=== PATIENT | female | born 1945 | race Hispanic/Latino ===

== ENCOUNTER 2016-06-20 21:24 | Inpatient (IN) | payer MEDICARE, BC ==
[2016-06-20 21:27] VITALS: BMI 23.3
--- NOTE | 2016-06-20 21:56 | ED PDOC ---
Arrival/HPI - General Chief Complaint: Abnormal Skin Integrity Time Seen by Provider: 06/20/16 21:32 - History of Present Illness Narrative History of Present Illness (Text): 06/20/16 21:58 71 yo F with h/o emboli on Coumadin, dCHF, Hypertension presents to ER with diffuse pruritic body rash x 1 month. Patient states rash started on her chest with 3-4 small erythematous, pruritic patches that subsequently spread to extremities, back, neck and head. Patient states she has been scratching at the rash, resulting is come mild bleeding a the lesion sites and scabbing. patient initially thought she had bed bugs and saved on of the bugs, which daughter looked at and now states there was no bug, it was a piece of scabbed skin. Patient states her PMD gave her Simran and a topical cream that did not help. Patient and daughter, who is also at bedside, state patient went to head of stock 3 times and has tried 3 different topical creams to no avail. States she had exterminators at her home x 2, no bugs were ever found. Admits to thinning eyebrows and hair in areas of rash. Admits to occasionally waking up with small dark/black pieces around her mouth that her daughter describes as scabs. Patient denies any changes in Detergents, food, meds. Patient states she felt slightly dizzy 2 days ago and her vision "started to darken a little," so she sat down on her bed. Patient denies any LOC and trauma , states she can recall the entire event. Denies CP, SOB, abd pain, n/v/d/c, fevers, chills, headache, dizziness, confusion, diaphoresis, weight loss. Time/Duration: > month Symptom Course: Worsening Past Medical History - Provider Review Nursing Documentation Reviewed: Yes - Travel History Have you recently traveled outside [place] w/in the past 3 mons?: No - Infectious Disease Hx of Infectious Diseases: None - Cardiac Hx Cardiac Disorders: Yes (AF, mod mitral regurgitation,) - Pulmonary Hx Chronic Obstructive Pulmonary Disease (COPD): Yes (current heavy smoker) - Neurological HX Cerebrovascular Accident: Yes - HEENT Hx HEENT Disorder: Yes Hx Blind: No Hx Cataracts: No Hx Deafness: No Hx Difficulty Chewing: No Hx Epistaxis: No Hx Glaucoma: No Hx Macular Degeneration: Yes - Renal Hx Renal Disorder: No (Kidney infection) Hx Dialysis: No Hx Kidney Stones: No Hx Neurogenic Bladder: No Hx Pyelonephritis: No Hx Renal Cancer: No Hx Renal Failure: No - Endocrine/Metabolic Hx Diabetes Mellitus Type 1: No Hx Diabetes Mellitus Type 2: No - Hematological/Oncological Hx Blood Disorders: No Hx AIDS: No Hx Anemia: No Hx Cancer: No Hx Chemotherapy: No Hx Cirrhosis: No Hx Hemophilia: No Hx Hepatitis A: No Hx Hepatitis B: No Hx Hepatitis C: No Hx Metastasis: No Hx Shingles: No Hx Sickle Cell Disease: No Hx Unexplained Bleeding: No - Integumentary Hx Dermatological Disorder: No Hx Basal Cell Carcinoma: No Hx Eczema: No Hx Melanoma: No Hx Psoriasis: No Hx Squamous Cell Carcinoma: No - Musculoskeletal/Rheumatological Hx Arthritis: (LBP) - Gastrointestinal Hx Gastrointestinal Disorders: No Hx Colostomy: No Hx Crohn's Disease: No Hx Diverticulitis: No Hx Gall Bladder Disease: No Hx Gastroesophageal Reflux: No Hx Gastrointestinal Ulcer: No Hx Ileostomy: No Hx Liver Failure: No Hx Pancreatitis: No HX Swallowing Problems: No - Genitourinary/Gynecological Hx Genitourinary Disorders: No Hx Hematuria: No Hx Incontinence: No Hx Prostate Problems: No Hx Sexually Transmitted Diseases: No Hx Urinary Tract Infection: Yes - Psychiatric Hx Psychophysiologic Disorder: No Hx Anxiety: No Hx Bipolar Disorder: No Hx Depression: No Hx Emotional Abuse: No Hx Hallucinations: No Hx Panic Disorder: No Hx Post Traumatic Stress Disorder: No Hx Psychosis: No Hx Physical Abuse: No Hx Schizophrenia: No Hx Sexual Abuse: No Hx Substance Use: No - Surgical History Hx Amputation: No Hx Appendectomy: Yes Hx Cardiac Catheterization: No Hx Cholecystectomy: No Hx Coronary Stent: No Hx Gastric Bypass Surgery: No Hx Hysterectomy: No Hx Joint Replacement: No Hx Kidney Transplant: No Hx Liver Transplant: No Hx Mastectomy: No Hx Musculoskeletal Surgery: No Hx Open Heart Surgery: No Hx Orthopedic Surgery: No Hx Splenectomy: No Hx Valve Replacement: No - Anesthesia Hx Anesthesia: Yes Hx Anesthesia Reactions: No Hx Malignant Hyperthermia: No - Suicidal Assessment Feels Threatened In Home Enviroment: No Family/Social History Family/Social History: CVA/TIA, Diabetes Smoking Status: Heavy Smoker > 10 Cigarettes Daily Hx Alcohol Use: No Hx Substance Use: No Allergies/Home Meds Allergies/Adverse Reactions: Allergies No Known Allergies Allergy (Verified 10/17/15 14:50) Home Medications: Home Meds Medication Instructions Recorded Confirmed Warfarin [Coumadin] 5 mg PO DAILY 02/25/14 10/19/15 Celecoxib [celeBREX] 200 mg PO DAILY 10/16/15 10/19/15 Metoprolol Tartrate [Lopressor] 50 mg PO BID 10/16/15 10/19/15 Aspirin [Low Dose Aspirin EC] 81 mg DAILY 10/19/15 10/19/15 Isosorbide Mononitrate [Imdur] 30 mg DAILY 10/19/15 10/19/15 Ferrous Gluconate [Ferate] 240 mg PO BID 06/20/16 06/20/16 Fexofenadine HCl [Allergy Relief] 60 mg PO DAILY 06/20/16 06/20/16 metOLazone [Zaroxolyn] 5 mg PO BID 06/20/16 06/20/16 Review of Systems - Physician Review All systems were reviewed & negative as marked: Yes - Review of Systems Constitutional: Normal. absent: Fatigue Eyes: Normal ENT: Normal Respiratory: Normal. absent: SOB, Cough, Sputum Cardiovascular: Normal. absent: Chest Pain, Palpitations, Edema, Calf Pain, LYNN Gastrointestinal: absent: Abdominal Pain, Constipation, Diarrhea, Nausea, Vomiting Genitourinary Female: absent: Dysuria, Frequency Musculoskeletal: absent: Back Pain, Neck Pain Skin: Rash (diffuse pruritic, erythematous body rash), Pruritis Neurological: Normal. absent: Headache, Dizziness Endocrine: Normal. absent: Diaphoresis, Polyuria Psychiatric: Normal Physical Exam Vital Signs Reviewed: Yes Vital Signs Temp Pulse Resp BP Pulse Ox 06/20/16 21:36 98.6 F 78 18 128/74 99 Temperature: Afebrile Blood Pressure: Normal Pulse: Regular Respiratory Rate: Normal Appearance: Positive for: Well-Appearing, Non-Toxic, Comfortable Pain Distress: None Mental Status: Positive for: Alert and Oriented X 3 - Systems Exam Head: Present: Atraumatic, Normocephalic Pupils: Present: PERRL Extroacular Muscles: Present: EOMI Conjunctiva: Present: Normal Mouth: Present: Moist Mucous Membranes Nose (External): Present: Atraumatic Neck: Present: Normal Range of Motion. No: Meningeal Signs, JVD Respiratory/Chest: Present: Clear to Auscultation. No: Respiratory Distress, Accessory Muscle Use Cardiovascular: Present: Regular Rate and Rhythm, Normal S1, S2 Abdomen: Present: Normal Bowel Sounds. No: Tenderness, Distention, Peritoneal Signs, Rebound, Guarding Upper Extremity: Present: Normal Inspection. No: Cyanosis, Edema Lower Extremity: Present: Normal Inspection. No: Edema, CALF TENDERNESS Neurological: Present: GCS=15, CN II-XII Intact, Speech Normal Skin: Present: Warm, Rashes (diffuse pruritic, erthematous rash. ) Psychiatric: Present: Alert, Oriented x 3, Normal Concentration Medical Decision Making ED Course and Treatment: 06/20/16 22:23 71 yo F with h/o emboli on Coumadin, dCHF, Hypertension presents to ER with diffuse pruritic body rash x 1 month, presyncope 2 days ago. - RAD Interpretation Radiology Orders: 06/20/16 21:35 HEAD W/O CONTRAST [CT] Stat - EKG Interpretation EKG Interpretation (Text): 06/20/16 22:21 SR, 54bpm, shortened NH (94ms). Nonspecific ST/T wave changes Interpreted by ED Physician: Yes Type: 12 lead EKG Comparison: Similar to previous EKG Disposition/Present on Arrival - Present on Arrival Any Indicators Present on Arrival: No History of DVT/PE: No History of Uncontrolled Diabetes: No Urinary Catheter: No History of Decub. Ulcer: No History Surgical Site Infection Following: None - Disposition Have Diagnosis and Disposition been Completed?: Yes Diagnosis: Pruritic rash, Syncope, Anticoagulated on Coumadin Disposition: HOSPITALIZED Disposition Time: 22:36 Patient Plan: Admission Patient Problems: Current Active Problems Problem Status Onset Pruritic rash Acute Condition: FAIR Referrals: Bruno Allen MD [Primary Care Provider] - Follow up with primary
[2016-06-20 22:18] LABS: ADD MANUAL DIFF? NO
[2016-06-20 22:27] LABS: BASO # 0.01 [, K/mm3] (0.0-2.0); BASO % 0.1 % (0.0-3.0); EOS % 0.2 % (1.5-5.0); GRAN # 5.14 (1.4-6.5); GRAN % 60.6 % (50.0-68.0); HEMATOCRIT 34.9 % (36.0-48.0); LYMPH # 2.6 (1.2-3.4); LYMPH % 30.2 % (22.0-35.0); MEAN CELL VOLUME 69.1 fL (80.0-105.0); MEAN CORPUSCULAR HEMOGLOBIN 22.2 pg (25.0-35.0); MEAN CORPUSCULAR HGB CONC 32.1 g/dl (31.0-37.0); MONO # 0.8 (0.1-0.6); MONO % 8.9 % (1.0-6.0); PLATELET COUNT 186 [, 10^3/uL] (120.0-450.0); RED CELL DISTRIBUTION WIDTH 19.6 % (11.5-14.5); WHITE BLOOD COUNT 8.5 [, 10^3/ul] (4.5-11.0)
[2016-06-20 22:32] LABS: ALB/GLOB RATIO 1.1 (1.1-1.8); ALKALINE PHOSPHATASE 38 U/L (38-133); ALT/SGPT 33 U/L (7-56); AST/SGOT 32 U/L (15-39); BILIRUBIN,TOTAL 0.6 mg/dL (0.2-1.3); BLOOD UREA NITROGEN 31 mg/dL (7-21); CALCIUM 10.3 mg/dL (8.4-10.5); CARBON DIOXIDE 30 mmol/L (21-33); CHLORIDE 99 mmol/L (98-107); GFR AFRICAN-AMERICAN > 60; GLUCOSE,RANDOM 106 mg/dL (70-110); LIPASE 173 U/L (23-300); POTASSIUM 3.4 mmol/L (3.6-5.0); SODIUM 139 mmol/L (132-148); TOTAL PROTEIN 7.3 g/dL (5.8-8.3)
--- NOTE | 2016-06-20 22:34 | CT ---
EXAM: CT Head Without Intravenous Contrast CLINICAL HISTORY: 71 years old, female; Signs and symptoms; Syncope and collapse; Additional info: Recent syncope - on coumadin TECHNIQUE: Axial computed tomography images of the head/brain without intravenous contrast. This CT exam was performed using one or more of the following dose reduction techniques: automated exposure control, adjustment of the mA and/or kV according to patient size, and/or use of iterative reconstruction technique. COMPARISON: No relevant prior studies available. FINDINGS: Brain: No acute intracranial hemorrhage. Age-appropriate periventricular white matter disease. No edema. Ventricles: Age-appropriate ventriculomegaly. Bones: No acute displaced fracture. Sinuses: Unremarkable as visualized. No acute sinusitis. Mastoid air cells: Unremarkable as visualized. No mastoid effusion. IMPRESSION: No acute intracranial hemorrhage, or suspicious mass effect.
[2016-06-20 22:38] LABS: PARTIAL THROMBOPLASTIN TIME 40.7 Seconds (23.7-30.8)
[2016-06-20 22:43] LABS: TROPONIN I 0.04 ng/mL
[2016-06-20 22:45] LABS: INR 5.88 (0.93-1.08)
[2016-06-21] MEDS ORDERED: [UNRECOGNIZED DRUG - REMARK] PO PRN (00:05)
[2016-06-21] MEDS ORDERED: Dextrose 5%/0.45% NS 1,000 ML IV SCH (02:00)
[2016-06-21] MEDS: Dextrose 5%/0.45% NS 1,000 ML IV SCH ×2 (02:57→15:10)
--- NOTE | 2016-06-21 08:14 | RAD ---
HISTORY: presyncope COMPARISON: 04/05/2016 FINDINGS: LUNGS: No active pulmonary disease. PLEURA: No significant pleural effusion identified, no pneumothorax apparent. CARDIOVASCULAR: Moderate cardiomegaly OSSEOUS STRUCTURES: No significant abnormalities. VISUALIZED UPPER ABDOMEN: Normal. OTHER FINDINGS: None. IMPRESSION: No active disease. Moderate cardiomegaly
[2016-06-21] MEDS: FERROUS GLUCONATE 240 MG PO SCH ×2 (09:47→17:22)
[2016-06-21] MEDS: Non Formulary Medication (Celecoxib [Celebrex] 200 MG) PO SCH (09:47)
--- NOTE | 2016-06-21 13:53 | CON ---
DATE: 06/21/2016 SERVICE: Cardiology. REASON FOR CONSULTATION: Cardiac evaluation, sinus bradycardia. BRIEF CLINICAL HISTORY: A 71-year-old female with past medical history significant for hypertension, history of splenic infarct, multiple thromboembolic phenomena in the past, had a ANETA because of mult iple thromboembolic infarcts, negative for PFO, no vegetation, active tobacco abuse, admitted here be cause of diffuse rash all over the body. The patient denies any chest pain, shortness of breath, any palpitation. The patient found to be bradycardic, so cardiac consult was called. The patient denie s any chest pain. 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 At that time, the patient underwent ANETA, show ed no PFO, no vegetation, no thrombus. The patient had a stress test at that time that showed a smal l area of ischemia, but cath was not done because of a stroke and was scheduled later on in 05/2014, b ut later on the patient declined for cardiac catheterization. The patient also had echocardiography on 10/17/2015, that showed ejection fraction 65%, mild aortic stenosis, moderate mitral regurgitation, mitral regurgitant jet is eccentrically directed, tricuspid mild regurgitation, RVSP 40. SOCIAL HISTORY: Smokes past 12 cigarettes a day, longstanding history of smoking. Denies any histor y of alcohol abuse. Denies any history of substance abuse. REVIEW OF SYSTEMS: As per HPI. PHYSICAL EXAMINATION: VITAL SIGNS: Temperature afebrile, heart rate 42, blood pressure 128/48. HEENT: PERRLA. Extraocular muscles intact. NECK: Supple. No carotid bruits. Carotid bruit with thyromegaly. CHEST: Clear to auscultation. HEART: S1, S2 regular. ABDOMEN: Soft. EXTREMITIES: Clubbing and cyanosis negative. LABORATORY DATA: Blood workup as follows: WBC 8.5, hemoglobin , hematocrit 34.9, platelet coun t 186. Chemistry shows sodium 139, potassium 3.4, chloride 99, carbon dioxide 30, anion gap of 13, B UN 31, creatinine 1.0. Troponin 0.01. CURRENT MEDICATIONS: The patient at home was taking Zaroxolyn, warfarin, metoprolol, isosorbide mono nitrate, Lasix, aspirin. IMPRESSION: Bradycardia, possibly secondary to metoprolol, taking 25 mg b.i.d., on Coumadin because of multiple thromboembolic complications, splenic infarct, renal infarct, in the back has a sma ll area of apical ischemia. Initially was scheduled because of a stroke, but later on scheduled in , the patient's family later declined, patient is asymptomatic. RECOMMENDATION: We will cut down the dose of beta nena and hold it off and monitor for the next 2 4-48 hours. After that, if the patient still remains bradycardic, we will schedule for Holter. The patient had most recently an echocardiography that shows preserved left ventricular function, mild to moderate mitral regurg, mild to moderate tricuspid regurgitation, right ventricular systolic pressur e 40, mild aortic sclerosis versus stenosis. We will follow with you. For now, will observe the pat ient for the heart rate while off beta nena. Last dose patient took yesterday metoprolol in the e vening, so at least wait for 48 hours to clear from the body and then we will observe the heart rate. Thank you, Dr. Allen, for providing the opportunity in taking care of the patient. INR suprather apeutic 5.88. We will check INR tomorrow. If it goes below 2, we will restart Coumadin. For now, Co umadin is on hold. I will put a baby aspirin. We will follow with you. Louis Montaño MD cc:Dhaval Allen MD [id number] TT: 06/21/2016 13:52:52 Confirmation # [id number] Dictation # [id number]
[2016-06-21 15:57] LABS: URINE BILIRUBIN NEGATIVE (NEGATIVE); URINE BLOOD NEGATIVE (NEGATIVE); URINE GLUCOSE (UA) NEGATIVE (NEGATIVE); URINE KETONE NEGATIVE (NEGATIVE); URINE LEUKOCYTE ESTERASE NEGATIVE Leu/uL (NEGATIVE); URINE PROTEIN NEGATIVE mg/dL (<30 mg/dL); URINE UROBILINOGEN 0.2 E.U./dL (<1 E.U./dL)
[2016-06-21 15:58] LABS: URINE APPEARANCE CLEAR (CLEAR); URINE COLOR YELLOW (YELLOW)
[2016-06-21] MEDS: Hydrocortisone 2.5% Oint(30 gm) TOP PRN (20:31)
--- NOTE | 2016-06-21 22:52 | CARD ---
APPROVED REPORT EKG Measurement Heart [id number] <Conclusion> Sinus bradycardia with short NE ST abnormality, possible digitalis effect Abnormal ECG
[2016-06-22] MEDS: Dextrose 5%/0.45% NS 1,000 ML IV SCH (06:21)
[2016-06-22 07:24] LABS: ADD MANUAL DIFF? NO
[2016-06-22 07:31] LABS: BASO # 0.01 [, K/mm3] (0.0-2.0); BASO % 0.1 % (0.0-3.0); EOS # 0.1 (0.0-0.7); EOS % 0.8 % (1.5-5.0); GRAN # 4.28 (1.4-6.5); GRAN % 55.9 % (50.0-68.0); LYMPH # 2.7 (1.2-3.4); LYMPH % 35.1 % (22.0-35.0); MEAN CELL VOLUME 69.6 fL (80.0-105.0); MEAN CORPUSCULAR HEMOGLOBIN 21.5 pg (25.0-35.0); MEAN CORPUSCULAR HGB CONC 30.8 g/dl (31.0-37.0); MONO # 0.6 (0.1-0.6); MONO % 8.1 % (1.0-6.0); PLATELET COUNT 162 [, 10^3/uL] (120.0-450.0); RED CELL DISTRIBUTION WIDTH 19.7 % (11.5-14.5); WHITE BLOOD COUNT 7.7 [, 10^3/ul] (4.5-11.0)
[2016-06-22 07:39] LABS: INR 2.32 (0.93-1.08)
[2016-06-22 07:44] LABS: ALB/GLOB RATIO 1.1 (1.1-1.8); ALKALINE PHOSPHATASE 33 U/L (38-133); ALT/SGPT 37 U/L (7-56); AST/SGOT 29 U/L (15-39); BILIRUBIN,TOTAL 0.7 mg/dL (0.2-1.3); BLOOD UREA NITROGEN 21 mg/dL (7-21); CALCIUM 9.9 mg/dL (8.4-10.5); CARBON DIOXIDE 35 mmol/L (21-33); CHLORIDE 99 mmol/L (98-107); CHOLESTEROL 141 mg/dL (130-200); GFR AFRICAN-AMERICAN > 60; GLUCOSE,RANDOM 91 mg/dL (70-110); MAGNESIUM 1.8 mg/dL (1.7-2.2); PHOSPHOROUS 2.8 mg/dL (2.5-4.5); POTASSIUM 3.5 mmol/L (3.6-5.0); SODIUM 141 mmol/L (132-148); TOTAL PROTEIN 6.6 g/dL (5.8-8.3)
[2016-06-22] MEDS: Non Formulary Medication (Celecoxib [Celebrex] 200 MG) PO SCH (10:00)
--- NOTE | 2016-06-22 10:52 | HP ---
CHIEF COMPLAINT: 1. Syncopal episode on the day prior to admission. 2. Hypercoagulable state related to Coumadin. 3. Pruritic rash. HISTORY OF PRESENT ILLNESS: This is a 71-year-old woman with no significant past medical history exc ept for atrial fibrillation on the Coumadin. She was hospitalized in 09/2015 with exertional dyspnea and ankle edema, and in 2014 with a new onset of atrial fibrillation. PAST SURGICAL HISTORY: Includes appendectomy a long time ago. The patient came to the Emergency Room after a syncopal episode 2 days before. She awoke the morning of admission with blood in her mouth and no obvious source, and was quite concerned to see the blood on the pillow. She has also been plagued by a pruritic rash. She saw Dr. Van Allen, her primary care physician, in the office; saw a operating room coordinator, was treated with Elimite; had her house treated for bedbugs, but yet the lesions continued to be quite painful and itchy adding to her frustration an d coming to the Emergency Room. PAST MEDICAL HISTORY: Significant only for the atrial fibrillation and mild CHF symptoms as noted ab marisela. CURRENT MEDICATIONS: Include Lasix, metolazone, warfarin, a Medrol Dosepak, metoprolol, fexofenadine , iron and aspirin. ALLERGIES: She has no known allergies to medications. SOCIAL HISTORY: She smokes a half pack of cigarettes a day, but does not drink alcohol. REVIEW OF SYSTEMS: Otherwise, unremarkable on multiple points. PHYSICAL EXAMINATION: GENERAL: The patient was seen resting comfortably in room 362 this Monday. She is awake, a lert, clear and appropriate, in good spirits, fully ambulatory. HEENT: Head and neck are unremarkable. Conjunctivae are pink. Mucous membranes are moist. NECK: Supple, without masses. There is no JVD. There are no carotid bruits. HEART: Irregular, but not tachycardic. LUNGS: Clear with good aeration, right and left. ABDOMEN: Soft, nontender. EXTREMITIES: Show no significant edema. SKIN: Shows multiple discrete bite-like lesions, 1 cm or smaller, with scabbed centers present on th e neck, arms, legs and upper back with surrounding excoriations noted. MOUTH: Shows no tumors or masses. No specific source of any cut or bleeding. LABORATORY DATA: Review reveals an INR of 5 on admission. ____ of 11 and 35 today, INR of 5.88 as n oted above, and a slightly low potassium of 3.4. IMPRESSION: 1. Syncopal episode 2 days ago. 2. Excoriated itchy rash from suspected bug bites. Consider bedbugs. 3. Coumadin coagulopathy with an INR of 5. 4. Occasional palpitations as reported by patient. 5. Atrial fibrillation. 6. Mild congestive heart failure, chronic, related to atrial fibrillation. PLAN: The patient will be monitored on a telemetry bed. Old records reviewed as to the extent of an y cardiac or neurologic workup that may be needed as well as further investigation into this syncopal versus near syncopal episode as doubt arises as to the details of the actual event. Will continue h er prior medications, order analgesics and antipyretics. I have also spoken with the social media project manager alcira mcmahon will contact public [employer] to see that her apartment at [address] [place] [address] A will be checked and fumigate d. Dhaval Allen MD cc: [id number] TT: 06/22/2016 09:17:21 [email or web address]
[2016-06-22] MEDS: Hydrocortisone 2.5% Oint(30 gm) TOP PRN (12:22)
--- NOTE | 2016-06-22 12:53 | CP.PCM.CON ---
<Hermelinda Elliott - Last Filed: 06/22/16 12:35> History of Present Illness - History of Present Illness History of Present Illness: Surgery Consult: Dr. Sheehan Pt is a 71F with PMHx significant for HTN, and afib on coumadin who presented to [facility] [place] for syncopal episode and a rash that has been present for 1 month. Pt states that she started finding little "bug bites" on her body about a month ago that were very itchy. She saw her primary care doctor and was referred to a search engine marketing manager who placed her on Elimite. Pt also had her house fumigated for bed bugs. However, none of these measures have helped her and the rash has spread to her back and even her scalp. She states it continues to be itchy and has caused her a lot of distress. Currently, pt is on hydrocortisone cream and surgery has been consulted to evaluate the rash for possible biopsy. Pt denies anyone else in the household having similar problems. Denies recent travel. She also denies any other associated symptoms such as N/V, F/C. PMHx: as stated above PSHx: denies SocialHx: long standing smoking history, current smoker NKDA Review of Systems - Review of Systems All systems: reviewed and no additional remarkable complaints except (as per HPI ) Past Patient History - Infectious Disease Hx of Infectious Diseases: None - Past Social History Smoking Status: Current Some Days Smoker - CARDIAC Hx Cardiac Disorders: Yes (AF, mod mitral regurgitation,) - PULMONARY Hx Chronic Obstructive Pulmonary Disease (COPD): Yes (current heavy smoker) - NEUROLOGICAL HX Cerebrovascular Accident: Yes - HEENT Hx HEENT Problems: Yes Hx Blind: No Hx Cataracts: No Hx Deafness: No Hx Difficulty Chewing: No Hx Epistaxis: No Hx Glaucoma: No Hx Macular Degeneration: Yes - RENAL Hx Renal Failure: No - ENDOCRINE/METABOLIC Hx Diabetes Mellitus Type 1: No Hx Diabetes Mellitus Type 2: No - HEMATOLOGICAL/ONCOLOGICAL Hx Blood Disorders: No Hx AIDS: No Hx Anemia: No Hx Cancer: No Hx Chemotherapy: No Hx Cirrhosis: No Hx Hemophilia: No Hx Hepatitis A: No Hx Hepatitis B: No Hx Hepatitis C: No Hx Metastesis: No Hx Shingles: No Hx Sickle Cell Disease: No Hx Unexplained Bleeding: No - INTEGUMENTARY Hx Dermatological Problems: No Hx Basil Cell: No Hx Eczema: No Hx Melanoma: No Hx Psoriasis: No Hx Squamous Cell: No - MUSCULOSKELETAL/RHEUMATOLOGICAL Hx Arthritis: (LBP) - GASTROINTESTINAL Hx Gastrointestinal Disorders: No Hx Colostomy: No Hx Crohn's Disease: No Hx Diverticulitis: No Hx Gall Bladder Disease: No Hx Gastroesophageal Reflux: No Hx Ileostomy: No Hx Liver Failure: No Hx Pancreatitis: No HX Swallowing Problems: No - GENITOURINARY/GYNECOLOGICAL Hx Genitourinary Disorders: No Hx Hematuria: No Hx Incontinence: No Hx Sexually Transmitted Disorders: No Hx Urinary Tract Infection: Yes - PSYCHIATRIC Hx Psychophysiologic Disorder: No Hx Anxiety: No Hx Bipolar Disorder: No Hx Depression: No Hx Emotional Abuse: No Hx Hallucinations: No Hx Panic Symptoms: No Hx Post Traumatic Stress Disorder: No Hx Psychosis: No Hx Physical Abuse: No Hx Schizophrenia: No Hx Sexual Abuse: No - SURGICAL HISTORY Hx Amputation: No Hx Cardiac Catheterization: No Hx Cholecystectomy: No Hx Coronary Stent: No Hx Gastric Bypass Surgery: No Hx Hysterectomy: No Hx Joint Replacement: No Hx Kidney Transplant: No Hx Liver Transplant: No Hx Mastectomy: No Hx Musculoskeletal Surgery: No Hx Open Heart Surgery: No Hx Orthopedic Surgery: No Hx Splenectomy: No Hx Valve Replacement: No - ANESTHESIA Hx Anesthesia: Yes Hx Anesthesia Reactions: No Hx Malignant Hyperthermia: No Meds Allergies/Adverse Reactions: Allergies Allergy/AdvReac Type Severity Reaction Status Date / Time No Known Allergies Allergy Verified 10/17/15 14:50 - Medications Medications: Current Medications Aspirin (Ecotrin) 81 mg PO DAILY [facility] Last Admin: 06/22/16 09:59 Dose: 81 mg Cephalexin Monohydrate (Keflex) 500 mg PO Q6 [facility] PRN Reason: Protocol Last Admin: 06/22/16 12:19 Dose: 500 mg Diphenhydramine HCl (Benadryl) 25 mg PO Q6 [facility] Last Admin: 06/22/16 12:20 Dose: 25 mg Ferrous Sulfate (Feosol) 324 mg PO DAILY [facility] Last Admin: 06/22/16 09:58 Dose: 324 mg Furosemide (Lasix) 20 mg PO DAILY [facility] Last Admin: 06/22/16 09:58 Dose: 20 mg Hydrocortisone (Hydrocortisone 2.5%) 0 gm TOP BID PRN PRN Reason: Itching / Pruritus Last Admin: 06/22/16 12:22 Dose: 1 applic Ibuprofen (Motrin Tab) 600 mg PO Q6H [facility] Last Admin: 06/22/16 12:20 Dose: 600 mg Isosorbide Mononitrate (Imdur) 30 mg PO DAILY [facility] Last Admin: 06/22/16 09:58 Dose: 30 mg Loratadine (Claritin) 10 mg PO DAILY [facility] Last Admin: 06/22/16 09:58 Dose: 10 mg Metoprolol Tartrate (Lopressor) 50 mg PO BID [facility] Last Admin: 06/22/16 09:59 Dose: 50 mg Nicotine (Nicoderm Cq) 1 patch TD DAILY [facility] Last Admin: 06/22/16 10:00 Dose: 1 patch Non-Formulary Medication (Celecoxib [Celebrex]) 200 mg PO DAILY [facility] Last Admin: 06/22/16 10:00 Dose: Not Given Physical Exam - Constitutional Appears: Well, No Acute Distress - Head Exam Head Exam: ATRAUMATIC, NORMOCEPHALIC - Eye Exam Eye Exam: Normal appearance - ENT Exam ENT Exam: Mucous Membranes Moist - Respiratory Exam Respiratory Exam: NORMAL BREATHING PATTERN - Cardiovascular Exam Cardiovascular Exam: Bradycardia - GI/Abdominal Exam GI & Abdominal Exam: Soft. absent: Tenderness - Rectal Exam Rectal Exam: Deferred - Extremities Exam Extremities exam: Positive for: full ROM - Neurological Exam Neurological exam: Alert, Oriented x3 - Skin Skin Exam: Dry, Warm Additional comments: multiple punctate lesions through out arms, legs, back and scalp, with central ulceration Results - Vital Signs Recent Vital Signs: Last Vital Signs Temp 97.9 F 06/22/16 06:00 Pulse 48 L 06/22/16 06:00 Resp 20 06/22/16 06:00 BP 122/60 06/22/16 09:58 Pulse Ox 95 06/22/16 06:00 - Labs Result Diagrams: 06/22/16 07:00 06/22/16 07:00 Labs: Laboratory Results - last 24 hr 06/21/16 06/22/16 06/22/16 14:30 07:00 07:00 WBC 7.7 RBC 5.17 Hgb 11.1 L Hct 36.0 MCV 69.6 L MCH 21.5 L MCHC 30.8 L RDW 19.7 H Plt Count 162 Gran % 55.9 Lymph % (Auto) 35.1 H Delta % (Auto) 8.1 H Eos % (Auto) 0.8 L Baso % (Auto) 0.1 Gran # 4.28 Lymph # 2.7 Delta # 0.6 Eos # 0.1 Baso # 0.01 PT 25.1 H INR 2.32 H Sodium Potassium Chloride Carbon Dioxide Anion Gap BUN Creatinine Est GFR ( Amer) Est GFR (Non-Af Amer) Random Glucose Calcium Phosphorus Magnesium Total Bilirubin AST ALT Alkaline Phosphatase Total Protein Albumin Globulin Albumin/Globulin Ratio Triglycerides Cholesterol LDL Cholesterol Direct HDL Cholesterol TSH 3rd Generation Urine Color Yellow Urine Appearance Clear Urine pH 6.0 Ur Specific Mccammon 1.010 Urine Protein Negative Urine Glucose (UA) Negative Urine Ketones Negative Urine Blood Negative Urine Nitrate Negative Urine Bilirubin Negative Urine Urobilinogen 0.2 Ur Leukocyte Esterase Negative 06/22/16 06/22/16 07:00 07:00 WBC RBC Hgb Hct MCV MCH MCHC RDW Plt Count Gran % Lymph % (Auto) Delta % (Auto) Eos % (Auto) Baso % (Auto) Gran # Lymph # Delta # Eos # Baso # PT INR Sodium 141 Potassium 3.5 L Chloride 99 Carbon Dioxide 35 H Anion Gap 11 BUN 21 Creatinine 0.7 Est GFR ( Amer) > 60 Est GFR (Non-Af Amer) > 60 Random Glucose 91 Calcium 9.9 Phosphorus 2.8 Magnesium 1.8 Total Bilirubin 0.7 AST 29 ALT 37 Alkaline Phosphatase 33 L Total Protein 6.6 Albumin 3.4 Globulin 3.2 Albumin/Globulin Ratio 1.1 Triglycerides 105 Cholesterol 141 LDL Cholesterol Direct 77 HDL Cholesterol 37 TSH 3rd Generation < 0.02 L Urine Color Urine Appearance Urine pH Ur Specific Mccammon Urine Protein Urine Glucose (UA) Urine Ketones Urine Blood Urine Nitrate Urine Bilirubin Urine Urobilinogen Ur Leukocyte Esterase Assessment & Plan - Assessment and Plan (Free Text) Assessment: 71F with diffuse skin rash Plan: - f/u ID recs - will do skin biopsy in AM - d/w Dr. Aguila Elliott, PGY-2 Surgery <Caleb Sheehan - Last Filed: 06/22/16 20:36> Meds - Medications Medications: Current Medications Aspirin (Ecotrin) 81 mg PO DAILY [facility] Last Admin: 06/22/16 09:59 Dose: 81 mg Diphenhydramine HCl (Benadryl) 25 mg PO Q6 [facility] Last Admin: 06/22/16 17:55 Dose: 25 mg Ferrous Sulfate (Feosol) 324 mg PO DAILY [facility] Last Admin: 06/22/16 09:58 Dose: 324 mg Furosemide (Lasix) 20 mg PO DAILY [facility] Last Admin: 06/22/16 09:58 Dose: 20 mg Hydrocortisone (Hydrocortisone 2.5%) 0 gm TOP BID PRN PRN Reason: Itching / Pruritus Last Admin: 06/22/16 12:22 Dose: 1 applic Ibuprofen (Motrin Tab) 600 mg PO Q6H [facility] Last Admin: 06/22/16 17:55 Dose: 600 mg Isosorbide Mononitrate (Imdur) 30 mg PO DAILY [facility] Last Admin: 06/22/16 09:58 Dose: 30 mg Loratadine (Claritin) 10 mg PO DAILY [facility] Last Admin: 06/22/16 09:58 Dose: 10 mg Metoprolol Tartrate (Lopressor) 50 mg PO BID [facility] Last Admin: 06/22/16 09:59 Dose: 50 mg Nicotine (Nicoderm Cq) 1 patch TD DAILY [facility] Last Admin: 06/22/16 10:00 Dose: 1 patch Non-Formulary Medication (Celecoxib [Celebrex]) 200 mg PO DAILY [facility] Last Admin: 06/22/16 10:00 Dose: Not Given Results - Vital Signs Recent Vital Signs: Last Vital Signs Temp 98.3 F 06/22/16 17:00 Pulse 46 L 06/22/16 18:00 Resp 20 06/22/16 17:00 BP 95/50 L 06/22/16 17:00 Pulse Ox 93 L 06/22/16 17:00 - Labs Result Diagrams: 06/22/16 07:00 06/22/16 07:00 Assessment & Plan - Assessment and Plan (Free Text) Assessment: Dx: Infestation( ? Scabies) Rx More aggressive management of itching I/D Consultation Skin Biopsy to confirm the Histopathology Consult done under my direct supervision Dong Sheehan MD FACS
[2016-06-22] MEDS ORDERED: Potassium Chloride 20 mEq ER Tab PO ONE (13:16)
--- NOTE | 2016-06-22 15:56 | PN ---
DATE: 06/22/2016 The patient in room 362, bed 2. REASON FOR CONSULTATION AND FOLLOWUP: Sinus bradycardia. HISTORY OF PRESENT ILLNESS: A 71-year-old female with past medical history significant for hypertens ion, splenic infarct, multiple thromboembolic phenomena in the past. Had ANETA because of multiple thr omboembolic infarcts. ANETA was negative for PFO and no vegetation was seen. The patient is an active tobacco abuser. The patient was admitted with diffuse rash all over the body, and found to have bra dycardia. The patient denies chest pain, shortness of breath, palpitation, dizziness or syncope. e patient had ANETA in 2013. The patient had a stress test at the same time which showed a small area of ischemia, but patient refused catheterization. Repeat echo 10/17/2015 showed ejection fraction 65 %, mild aortic stenosis, moderate mitral regurg - the mitral regurgitation jet is eccentrically direc nikhil - mild tricuspid regurg, RVSP 40 mmHg. The patient on monitor still has bradycardia but denies a ny chest pain, shortness of breath, palpitation. PHYSICAL EXAMINATION: VITAL SIGNS: Blood pressure 122/60, respirations 20, pulse 48, temperature 97.9. HEAD: Normocephalic. EYES: Pupils normal. Conjunctivae slightly pale. NECK: JVP low. Carotid equal. THORAX: AP diameter normal. LUNGS: Clear. CARDIOVASCULAR: S1, S2. Systolic murmur. No rub. ABDOMEN: Soft. No tenderness, no organomegaly. EXTREMITIES: No clubbing, no cyanosis. LABORATORY DATA: WBC 7.7, hemoglobin 11.1, hematocrit 36.0, platelets 162. Sodium 141, potassium 3. 5, BUN 21, creatinine 0.7. AST, ALT normal. TSH less than 0.02. DIAGNOSES: Bradycardia. The patient was on metoprolol 50 b.i.d. at home, on Coumadin because of mul tiple thromboembolic phenomena including splenic infarct, renal infarct. RECOMMENDATION AND PLAN: The patient's heart rate is still slow, so we will continue to hold the met oprolol. Will put a 24-hour Holter monitor. The patient getting Claritin 10 mg p.o. daily, aspirin 81 mg p.o. daily, ferrous sulfate 324 p.o. daily, isosorbide mono 30 daily, Keflex 500 mg p.o. q. 6 h ours, Zestril 20 mg p.o. daily, metoprolol 50 b.i.d. which is on hold because of bradycardia. The pa geovani's potassium is low; will give potassium therapy and repeat SMA-7 in the morning. Will also put 24-hour monitor for evaluation of bradycardia. Will follow with you. Louis Gautam MD cc: [id number] TT: 06/22/2016 14:12:42 Confirmation # [id number] Dictation # [id number] mn
[2016-06-22] MEDS ORDERED: Permethrin 5% Cream(60 gm) TOP ONE (18:01)
--- NOTE | 2016-06-22 18:16 | CP.PCM.CON ---
History of Present Illness - History of Present Illness History of Present Illness: 71 year old female with PMH of dilated cardiomyopathy with chronic CHF, atrial fibrillation on anticoagulation came in complaining of rash on her trunk and lower extremities for the past month. She states that it started out as papular lesions which were pruritic, initially on her chest, then spread to her back, then to her lower extremities. She has been scratching since then, leading to scabbing and excorations. She saw her PMD and was given Simran but it has not helped. She also went to a finance advisor and was given topical creams which were also not helpful. She had exterminators fumigate her home because she thought she had bedbugs. She denies using new detergent or soap, has not bought or used new clothes recently, denies animal contacts, no denies going to wooded areas. She denies fever or chills, no nausea or vomiting, no chest pain, no SOB , no cough or colds, no sore throat, no diarrhea, no dysuria. Infectious Diseases consult is requested to further evaluate and manage. Review of Systems - Review of Systems All systems: reviewed and no additional remarkable complaints except (as per HPI ) Past Patient History - Infectious Disease Hx of Infectious Diseases: None - Past Social History Smoking Status: Current Some Days Smoker - CARDIAC Hx Cardiac Disorders: Yes (AF, mod mitral regurgitation,) - PULMONARY Hx Chronic Obstructive Pulmonary Disease (COPD): Yes (current heavy smoker) - NEUROLOGICAL HX Cerebrovascular Accident: Yes - HEENT Hx HEENT Problems: Yes Hx Blind: No Hx Cataracts: No Hx Deafness: No Hx Difficulty Chewing: No Hx Epistaxis: No Hx Glaucoma: No Hx Macular Degeneration: Yes - RENAL Hx Renal Failure: No - ENDOCRINE/METABOLIC Hx Diabetes Mellitus Type 1: No Hx Diabetes Mellitus Type 2: No - HEMATOLOGICAL/ONCOLOGICAL Hx Blood Disorders: No Hx AIDS: No Hx Anemia: No Hx Cancer: No Hx Chemotherapy: No Hx Cirrhosis: No Hx Hemophilia: No Hx Hepatitis A: No Hx Hepatitis B: No Hx Hepatitis C: No Hx Metastesis: No Hx Shingles: No Hx Sickle Cell Disease: No Hx Unexplained Bleeding: No - INTEGUMENTARY Hx Dermatological Problems: No Hx Basil Cell: No Hx Eczema: No Hx Melanoma: No Hx Psoriasis: No Hx Squamous Cell: No - MUSCULOSKELETAL/RHEUMATOLOGICAL Hx Arthritis: (LBP) - GASTROINTESTINAL Hx Gastrointestinal Disorders: No Hx Colostomy: No Hx Crohn's Disease: No Hx Diverticulitis: No Hx Gall Bladder Disease: No Hx Gastroesophageal Reflux: No Hx Ileostomy: No Hx Liver Failure: No Hx Pancreatitis: No HX Swallowing Problems: No - GENITOURINARY/GYNECOLOGICAL Hx Genitourinary Disorders: No Hx Hematuria: No Hx Incontinence: No Hx Sexually Transmitted Disorders: No Hx Urinary Tract Infection: Yes - PSYCHIATRIC Hx Psychophysiologic Disorder: No Hx Anxiety: No Hx Bipolar Disorder: No Hx Depression: No Hx Emotional Abuse: No Hx Hallucinations: No Hx Panic Symptoms: No Hx Post Traumatic Stress Disorder: No Hx Psychosis: No Hx Physical Abuse: No Hx Schizophrenia: No Hx Sexual Abuse: No - SURGICAL HISTORY Hx Amputation: No Hx Cardiac Catheterization: No Hx Cholecystectomy: No Hx Coronary Stent: No Hx Gastric Bypass Surgery: No Hx Hysterectomy: No Hx Joint Replacement: No Hx Kidney Transplant: No Hx Liver Transplant: No Hx Mastectomy: No Hx Musculoskeletal Surgery: No Hx Open Heart Surgery: No Hx Orthopedic Surgery: No Hx Splenectomy: No Hx Valve Replacement: No - ANESTHESIA Hx Anesthesia: Yes Hx Anesthesia Reactions: No Hx Malignant Hyperthermia: No Meds Allergies/Adverse Reactions: Allergies Allergy/AdvReac Type Severity Reaction Status Date / Time No Known Allergies Allergy Verified 10/17/15 14:50 - Medications Medications: Current Medications Aspirin (Ecotrin) 81 mg PO DAILY [facility] Last Admin: 06/22/16 09:59 Dose: 81 mg Cephalexin Monohydrate (Keflex) 500 mg PO Q6 [facility] PRN Reason: Protocol Last Admin: 06/22/16 17:55 Dose: 500 mg Diphenhydramine HCl (Benadryl) 25 mg PO Q6 [facility] Last Admin: 06/22/16 17:55 Dose: 25 mg Ferrous Sulfate (Feosol) 324 mg PO DAILY [facility] Last Admin: 06/22/16 09:58 Dose: 324 mg Furosemide (Lasix) 20 mg PO DAILY [facility] Last Admin: 06/22/16 09:58 Dose: 20 mg Hydrocortisone (Hydrocortisone 2.5%) 0 gm TOP BID PRN PRN Reason: Itching / Pruritus Last Admin: 06/22/16 12:22 Dose: 1 applic Ibuprofen (Motrin Tab) 600 mg PO Q6H [facility] Last Admin: 06/22/16 17:55 Dose: 600 mg Isosorbide Mononitrate (Imdur) 30 mg PO DAILY [facility] Last Admin: 06/22/16 09:58 Dose: 30 mg Loratadine (Claritin) 10 mg PO DAILY [facility] Last Admin: 06/22/16 09:58 Dose: 10 mg Metoprolol Tartrate (Lopressor) 50 mg PO BID [facility] Last Admin: 06/22/16 09:59 Dose: 50 mg Nicotine (Nicoderm Cq) 1 patch TD DAILY [facility] Last Admin: 06/22/16 10:00 Dose: 1 patch Non-Formulary Medication (Celecoxib [Celebrex]) 200 mg PO DAILY [facility] Last Admin: 06/22/16 10:00 Dose: Not Given Permethrin (Permethrin 5% Cream) 0 gm TOP ONCE ONE Stop: 06/22/16 18:02 Physical Exam - Constitutional Appears: Non-toxic, No Acute Distress - Head Exam Head Exam: NORMAL INSPECTION - ENT Exam ENT Exam: Mucous Membranes Moist - Neck Exam Neck exam: Negative for: Lymphadenopathy, Meningismus - Respiratory Exam Respiratory Exam: Decreased Breath Sounds - Cardiovascular Exam Cardiovascular Exam: +S1, +S2 - GI/Abdominal Exam GI & Abdominal Exam: Soft. absent: Tenderness - Skin Additional comments: multiple papular and nodular lesions, some excoriated and with scabbing on the anterior and posterior trunk and on the legs Results - Vital Signs Recent Vital Signs: Last Vital Signs Temp 97.9 F 06/22/16 06:00 Pulse 48 L 06/22/16 06:00 Resp 20 06/22/16 06:00 BP 122/60 06/22/16 09:58 Pulse Ox 95 06/22/16 06:00 - Labs Result Diagrams: 06/22/16 07:00 06/22/16 07:00 Assessment & Plan - Assessment and Plan (Free Text) Plan: Assessment Pruritic papular and nodular lesions on the trunk and lower extremities, R/O scabies, R/O bed bugs R/O prurigo nodularis dilated cardiomyopathy with chronic CHF atrial fibrillation on anticoagulation Plan Will give Permethrin cream and monitor clinical response continue loratadine There is plan for punch biopsy of the lesions Will follow clinically
--- NOTE | 2016-06-22 18:40 | CARD ---
APPROVED REPORT EKG Measurement Heart [id number] MN 104P [id number] <Conclusion> Marked sinus bradycardia with short MN and junctional escape Left axis deviation Nonspecific ST abnormality Abnormal ECG
[2016-06-22] MEDS ORDERED: TEMAZEPAM 30MG CAPSULE PO PRN (20:51)
[2016-06-22] MEDS: methylPREDNISolone 20 MG in Sodium Chloride 0.9% 100 ML IVPB PRN (21:54)
[2016-06-23 07:16] LABS: ADD MANUAL DIFF? NO
[2016-06-23 07:21] LABS: GRAN # 4.48 (1.4-6.5); GRAN % 80.4 % (50.0-68.0); HEMATOCRIT 35.4 % (36.0-48.0); LYMPH % 17.6 % (22.0-35.0); MEAN CELL VOLUME 69.4 fL (80.0-105.0); MEAN CORPUSCULAR HEMOGLOBIN 21.6 pg (25.0-35.0); MEAN CORPUSCULAR HGB CONC 31.1 g/dl (31.0-37.0); MONO # 0.1 (0.1-0.6); PLATELET COUNT 179 [, 10^3/uL] (120.0-450.0); RED CELL DISTRIBUTION WIDTH 19.7 % (11.5-14.5); WHITE BLOOD COUNT 5.6 [, 10^3/ul] (4.5-11.0)
[2016-06-23 07:29] LABS: INR 1.32 (0.93-1.08)
[2016-06-23 07:41] LABS: BLOOD UREA NITROGEN 30 mg/dL (7-21); CALCIUM 9.8 mg/dL (8.4-10.5); CARBON DIOXIDE 30 mmol/L (21-33); CHLORIDE 102 mmol/L (98-107); GFR AFRICAN-AMERICAN > 60; GLUCOSE,RANDOM 113 mg/dL (70-110); PHOSPHOROUS 3.7 mg/dL (2.5-4.5); POTASSIUM 4.6 mmol/L (3.6-5.0); SODIUM 139 mmol/L (132-148)
[2016-06-23] MEDS ORDERED: TEMAZEPAM 30MG CAPSULE PO PRN (08:22)
[2016-06-23] MEDS: Non Formulary Medication (Celecoxib [Celebrex] 200 MG) PO SCH (10:11)
[2016-06-23 12:04] LABS: TROPONIN I 0.02 ng/mL
--- NOTE | 2016-06-23 13:56 | PN ---
DATE: 06/23/2016 The patient in room 362, bed 2. REASON FOR CONSULTATION AND FOLLOWUP: Sinus bradycardia. HISTORY OF PRESENT ILLNESS: A 71-year-old female admitted with a rash on her body and then found to have bradycardia. The patient also complaining dizziness. The patient denies chest pain or palpitat ion. In the past, patient had multiple thromboembolic phenomena, for which ANETA was done, which was n egative in 2013. The patient had a stress test the same time and it showed small area of ischemia, b ut patient refused catheterization. Repeat echo 10/16/ showed ejection fraction of 65%, mild aor tic stenosis, moderate mitral regurg, mild tricuspid regurg, RVSP 40 mmHg. The patient now gets very slight dizziness, but denies any chest pain or shortness of breath. [facility], which will be completed today. PHYSICAL EXAMINATION: VITAL SIGNS: Blood pressure 137/50, respirations 18, pulse while I was examining was 56 per minute, temperature 97.5. HEAD: Normocephalic. EYES: Pupils normal. Conjunctivae slightly pale. NECK: JVP low. Carotid equal. THORAX: AP diameter normal. LUNGS: Clear. CARDIOVASCULAR: S1, S2. ABDOMEN: Soft, no tenderness, no organomegaly. Bowel sounds normal. EXTREMITIES: No clubbing, no cyanosis. LABORATORIES: WBC 5.6, hemoglobin 11.0, hematocrit 35.4, platelets 179. Sodium 139, potassium 4.6, BUN 30, creatinine 0.7. Calcium, phosphorus, magnesium normal. iron assorter yesterday afternoon showed run of junctional rhythm, 39 per minute. The patient wa s asymptomatic. DIAGNOSES: Bradycardia, episode of junctional rhythm yesterday with 39 per minute, history of thromb oembolic phenomena with splenic infarct, renal infarct, body rash, sinus bradycardia. PLAN: We will continue to hold beta nena which is Lopressor and patient had Holter monitor. We w ill follow that report. The patient is getting Zestril, aspirin, ferrous sulfate, isosorbide mono, _ ____. Yesterday, patient had hypokalemia, which has been corrected on today's blood work. TSH is le ss than 0.02. We will follow the Holter report. In the meantime, continue present therapy. Louis Gautam MD cc: [id number] TT: 06/23/2016 12:12:55 Confirmation # [id number] Dictation # [id number]
--- NOTE | 2016-06-23 14:31 | CP.PCM.PN ---
Subjective - Date & Time of Evaluation Date of Evaluation: 06/23/16 Time of Evaluation: 13:40 - Subjective Subjective: Surgery Progress note. Dr. Sheehan Pt seen and examined at bedside. Still c/o itching all over with rash. No new complaints. Objective - Vital Signs/Intake and Output Vital Signs (last 24 hours): Temp Pulse Resp BP Pulse Ox 97.5 F L 41 L 18 137/50 L 95 06/23/16 06:00 06/23/16 06:00 06/23/16 06:00 06/23/16 09:17 06/23/16 06:00 Intake and Output: 06/23/16 06/23/16 06:59 18:59 Intake Total 680 600 Balance 680 600 - Medications Medications: Current Medications Aspirin (Ecotrin) 81 mg PO DAILY [facility] Last Admin: 06/23/16 09:17 Dose: 81 mg Diphenhydramine HCl (Benadryl) 25 mg PO Q6 [facility] Last Admin: 06/23/16 12:42 Dose: 25 mg Ferrous Sulfate (Feosol) 324 mg PO DAILY [facility] Last Admin: 06/23/16 09:17 Dose: 324 mg Furosemide (Lasix) 20 mg PO DAILY [facility] Last Admin: 06/23/16 09:17 Dose: 20 mg Home Med (Home Med) 1 unit PO HS PRN PRN Reason: Insomnia Hydrocortisone (Hydrocortisone 2.5%) 0 gm TOP BID PRN PRN Reason: Itching / Pruritus Last Admin: 06/22/16 12:22 Dose: 1 applic Methylprednisolone 20 mg/ (Sodium Chloride) 100 mls @ 200 mls/hr IVPB ONCE PRN PRN Reason: Itching / Pruritus Stop: 06/25/16 20:55 Last Admin: 06/22/16 21:54 Dose: 200 mls/hr Ibuprofen (Motrin Tab) 600 mg PO Q6H [facility] Last Admin: 06/23/16 12:42 Dose: 600 mg Isosorbide Mononitrate (Imdur) 30 mg PO DAILY [facility] Last Admin: 06/23/16 09:17 Dose: 30 mg Loratadine (Claritin) 10 mg PO DAILY [facility] Last Admin: 06/23/16 09:16 Dose: 10 mg Nicotine (Nicoderm Cq) 1 patch TD DAILY [facility] Last Admin: 06/23/16 09:16 Dose: 1 patch Non-Formulary Medication (Celecoxib [Celebrex]) 200 mg PO DAILY [facility] Last Admin: 06/23/16 10:11 Dose: Not Given - Labs Labs: 06/23/16 05:00 06/23/16 05:00 PT 14.3 Seconds (9.9-11.8) H 06/23/16 05:00 INR 1.32 (0.93-1.08) H 06/23/16 05:00 APTT 40.7 Seconds (23.7-30.8) H 06/20/16 22:10 - Constitutional Appears: Well, No Acute Distress - Head Exam Head Exam: ATRAUMATIC, NORMAL INSPECTION, NORMOCEPHALIC - Eye Exam Eye Exam: EOMI - ENT Exam ENT Exam: Mucous Membranes Moist - Neck Exam Neck Exam: Full ROM - Respiratory Exam Respiratory Exam: NORMAL BREATHING PATTERN - GI/Abdominal Exam GI & Abdominal Exam: Soft - Back Exam Additional comments: Multiple diffuse punctate lesions, at different stages of healing, with central ulceration; involving back, neck, chest, trunk, scalp, extremities. - Neurological Exam Neurological Exam: Alert, Awake, Oriented x3 Assessment and Plan - Assessment and Plan (Free Text) Assessment: 71yo F with diffuse skin rash - Skin biopsy of 3 different upper back skin lesions done at bedside today. Patient tolerated procedure well, no complications. f/u Pathology - Continue aggressive treatment of pruritus - f/u ID recs Discussed case with Dr. Aguila Briseno PGY1 surgery pager: [phone] Procedure: Blank - Time Time Performed: 14:39 - Time Out Time Out: Side verified, Site verified, Patient ID confirmed, Sterile procedures obs. - Procedure Procedure:: 3.5mm Punch biopsy of Skin rash x3. - Consent obtained: Consent obtained: Written - Performed by: Performed by:: Mid-level provider - Contraindications: Contraindications:: None - Anesthetic Technique Anesthetic Technique: Local - Topical: Local/Regional Anesthetic:: Lidocaine 1% - Patient Position Patient Position:: Prone - Location Location: Back - Result Result: Successful - Post-Procedure Post-procedure:: Hemostasis achieved, Dressing applied - Specimens/Tests Ordered Specimens/Tests Ordered: 3.5mm punch upper back skin biopsy x3 - Patient Tolerated Procedure Patient Tolerated Procedure:: Well
--- NOTE | 2016-06-23 14:44 | PN ---
DATE: 06/23/2016 The patient is in bed, in no acute distress, nontoxic. PHYSICAL EXAMINATION: VITAL SIGNS: Temperature is 97, blood pressure is 130/50, respiratory rate of 16. HEENT: Unremarkable. NECK: Supple. LUNGS: Have decreased breath sounds. HEART: Normal S1, S2. ABDOMEN: Soft, nontender. LABORATORY EXAMINATION: Reveals a white count of 5.6, hemoglobin of 11, platelets of 179. BUN of 30 , creatinine of 0.7. The urinalysis is noted. Microbiology reveals the urine cultures are negative. Review of orders reveals the patient to be on prednisone or rather Solu-Medrol was given x 1 dose yes terday by Dr. Caleb Sheehan. ASSESSMENT AND PLAN: A 71-year-old female with dilated cardiomyopathy, chronic congestive heart fail ure, atrial fibrillation. Admitted with pruritic papular nodular lesions on the trunk and lower extr emities and rule out prurigo nodularis. Permethrin cream was given. Plan for punch biopsy. Current ly off of antibiotics. Brandon Mata MD cc: [id number] TT: 06/23/2016 14:43:13 Confirmation # [id number] Dictation # [id number]
[2016-06-23] MEDS ORDERED: MethylPREDNISolone 40 mg Vial ONE (21:54)
[2016-06-23] MEDS: methylPREDNISolone 20 MG in Sodium Chloride 0.9% 100 ML IVPB PRN (21:54)
--- NOTE | 2016-06-23 22:24 | PN ---
DATE: 06/23/2016 The patient was seen this morning in room 362, bed 2, sitting in bed, awake, alert, clear, and comfortable. Itching has subsided a bit. Turnover was received this morning from Dr. Van Allen, who saw her yesterday. The patient was seen by Dr. Sheehan and she is scheduled for biopsy of the skin lesion later today. Infectious disease consultation was also requested and the patient said her home had once again been inspected, cleaned and fumigated from bed bugs. PHYSICAL EXAMINATION: Essentially unremarkable and unchanged. Wounds are healing nicely with minimal surrounding erythema to any of the multiple scattered like wounds seen. We will proceed with a biopsy and look forward to the input from infectious disease. I still suspect bedbugs to be high on the list of differential diagnosis and we will follow closely. Dhaval Allen MD cc: [id number] TT: 06/23/2016 22:23:10 Confirmation # [id number] Dictation # [id number] jason QUILES
--- NOTE | 2016-06-24 03:45 | CP.PCM.PCO ---
Physician Communication Note - Physician Communication Note Physician Communication Note: Skin Bx taken/?Pacemaker Rx to be considered
[2016-06-24 07:21] VITALS: PULSE 56; RESP 20; TEMP 97.7; O2SAT 99
[2016-06-24 08:22] LABS: INR 1.11 (0.93-1.08)
--- NOTE | 2016-06-24 09:37 | CP.PCM.PN ---
Subjective - Date & Time of Evaluation Date of Evaluation: 06/24/16 Time of Evaluation: 07:45 - Subjective Subjective: Surgery Progress note. Dr. Sheehan Pt seen and examined at bedside. No acute events overnight. No new complaints. Still c/o itching. Objective - Vital Signs/Intake and Output Vital Signs (last 24 hours): Temp Pulse Resp BP Pulse Ox 97.7 F 56 L 20 150/98 H 99 06/24/16 06:00 06/24/16 06:00 06/24/16 06:00 06/24/16 06:00 06/24/16 06:00 Intake and Output: 06/24/16 06/24/16 06:59 18:59 Intake Total 540 Balance 540 - Medications Medications: Current Medications Aspirin (Ecotrin) 81 mg PO DAILY [facility] Last Admin: 06/23/16 09:17 Dose: 81 mg Diphenhydramine HCl (Benadryl) 25 mg PO Q6 [facility] Last Admin: 06/24/16 05:43 Dose: 25 mg Ferrous Sulfate (Feosol) 324 mg PO DAILY [facility] Last Admin: 06/23/16 09:17 Dose: 324 mg Furosemide (Lasix) 20 mg PO DAILY [facility] Last Admin: 06/23/16 09:17 Dose: 20 mg Home Med (Home Med) 1 unit PO HS PRN PRN Reason: Insomnia Hydrocortisone (Hydrocortisone 2.5%) 0 gm TOP BID PRN PRN Reason: Itching / Pruritus Last Admin: 06/22/16 12:22 Dose: 1 applic Methylprednisolone 20 mg/ (Sodium Chloride) 100 mls @ 200 mls/hr IVPB ONCE PRN PRN Reason: Itching / Pruritus Stop: 06/25/16 20:55 Last Admin: 06/23/16 21:54 Dose: 200 mls/hr Ibuprofen (Motrin Tab) 600 mg PO Q6H [facility] Last Admin: 06/24/16 05:43 Dose: 600 mg Isosorbide Mononitrate (Imdur) 30 mg PO DAILY [facility] Last Admin: 06/23/16 09:17 Dose: 30 mg Loratadine (Claritin) 10 mg PO DAILY [facility] Last Admin: 06/23/16 09:16 Dose: 10 mg Methylprednisolone (Solu-Medrol) 20 mg IVP DAILY [facility] Nicotine (Nicoderm Cq) 1 patch TD DAILY [facility] Last Admin: 06/23/16 09:16 Dose: 1 patch Non-Formulary Medication (Celecoxib [Celebrex]) 200 mg PO DAILY [facility] Last Admin: 06/23/16 10:11 Dose: Not Given - Labs Labs: 06/23/16 05:00 06/23/16 05:00 PT 12.0 Seconds (9.9-11.8) H 06/24/16 07:30 INR 1.11 (0.93-1.08) H 06/24/16 07:30 APTT 40.7 Seconds (23.7-30.8) H 06/20/16 22:10 - Constitutional Appears: Well, No Acute Distress - Head Exam Head Exam: ATRAUMATIC, NORMAL INSPECTION, NORMOCEPHALIC - Eye Exam Eye Exam: EOMI - ENT Exam ENT Exam: Mucous Membranes Moist - Respiratory Exam Respiratory Exam: NORMAL BREATHING PATTERN. absent: Wheezes - Cardiovascular Exam Cardiovascular Exam: absent: JVD - GI/Abdominal Exam GI & Abdominal Exam: Soft - Back Exam Additional comments: Multiple diffuse punctate lesions, at different stages of healing, with central ulceration; Three punch biopsy sites on upper back. Dressings clean,dry, intact. - Neurological Exam Neurological Exam: Alert, Awake, Oriented x3 Assessment and Plan - Assessment and Plan (Free Text) Assessment: 71yo F with diffuse skin rash - f/u Pathology - Continue aggressive treatment of pruritus - f/u ID recs Discussed case with Dr. Aguila Briseno PGY1 surgery pager: [phone]
[2016-06-24] MEDS ORDERED: MethylPREDNISolone 40 mg Vial IVP SCH (10:00)
--- NOTE | 2016-06-24 10:13 | PN ---
DATE: 06/24/2016 The patient is in bed, in no acute distress, nontoxic. PHYSICAL EXAMINATION: VITAL SIGNS: Temperature is 98, blood pressure is 150/90, respiratory rate of 16. HEENT: Unremarkable. NECK: Supple. LUNGS: Have decreased breath sounds. HEART: Normal S1, S2. ABDOMEN: Soft, nontender. LABORATORY DATA: Reveals a white count of 5.6, hemoglobin of 11, platelets of 179. Chemistries reve al the BUN of 30, creatinine of 0.7. Urinalysis is noted. Microbiology is noted. ASSESSMENT AND PLAN: This is a 71-year-old female with a history of dilated cardiomyopathy, chronic congestive heart failure, atrial fibrillation, admitted with pruritic rash and papular nodular lesion s for biopsy. Currently off of antibiotics. The patient was treated for scabies. Is severely pruri tic. The patient is on Solu-Medrol. Brandon Mata MD cc: [id number] TT: 06/24/2016 10:12:23 Confirmation # [id number] Dictation # [id number] mn
[2016-06-24] MEDS: Non Formulary Medication (Celecoxib [Celebrex] 200 MG) PO SCH (11:01)
[2016-06-24 11:13] VITALS: BP 130/72
--- NOTE | 2016-06-24 11:57 | PN ---
DATE: 06/24/2016 The patient is in room 362, bed 2. REASON FOR CONSULTATION: Sinus bradycardia. HISTORY OF PRESENT ILLNESS: A 71-year-old female who was admitted with a rash on the body, found to have sinus bradycardia. The patient was also complaining of dizziness. Denies any syncope, chest pa in, shortness of breath. The patient had ANETA done in the past which was negative. It was done in . The patient also had stress test at that time. It was showing small area of ischemia. The bethanie ent refused catheterization. The patient had repeat echo on 10/17/2015 which showed ejection fraction 55%, mild aortic stenosis, moderate mitral regurg, mild tricuspid regurg, RVSP 40 mmHg. The patient on the monitor still shows sinus bradycardia, around 53-55 per minute. Holter monitor also shows ep isode of bradycardia and the longest pause was 2.3 seconds. So, this type of rhythm does not meet th e criteria for insertion of pacemaker, so patient is asymptomatic. PHYSICAL EXAMINATION: VITAL SIGNS: Blood pressure 150/98, then repeat one 130/72, respirations 20, pulse 56, temperature 9 7.7. HEAD: Normocephalic. EYES: Pupils normal. Conjunctivae slightly pale. NECK: JVP low. Carotid equal. THORAX: AP diameter normal. LUNGS: Clear. CARDIOVASCULAR: S1, S2, systolic murmur, no rub. ABDOMEN: Soft, no tenderness, no organomegaly. Bowel sounds normal. EXTREMITIES: No clubbing, no cyanosis. LABORATORY DATA: WBC 5.6, hemoglobin 11.0, hematocrit 35.4, platelets 179. Sodium 139, potassium 4. 6, BUN 30, creatinine 0.7. Calcium, phosphorus, magnesium normal. Troponin 0.02. DIAGNOSES: Sinus bradycardia. The patient is asymptomatic, history of thromboembolic phenomenon wit h splenic infarct, renal infarct, body rash. PLAN: To keep the patient off beta blockers and we will repeat Holter monitor as outpatient and expl ained everything to the patient, discussed with Dr. Jeremy Allen and patient will go home and follow as outpatient and we will do the followup. Louis Gautam MD cc: [id number] TT: 06/24/2016 11:56:33 Confirmation # [id number] Dictation # [id number] tn
--- NOTE | 2016-06-24 12:50 | CP.PCM.PCO ---
Physician Communication Note - Physician Communication Note Physician Communication Note: D/C Home-Rx [id number]/U PRN
--- NOTE | 2016-06-25 22:10 | DS ---
This is a 71-year-old woman who presented to the Emergency Room with a history of a possible syncopal or near syncopal episode the day before admission. She also complained of extreme pruritic itching and a rash all over her body. She had been seen in the office on what I believe to be 2 occasions by my associate, Dr. Van Allen, and then followed by what I am reportedly being told was 3 different dermatologists, yet her rash, itching and excoriations continued. Then, after the syncopal episode or near syncopal episode, she came to the Emergency Room. She was seen in the ER and admitted to a onitored floor, evaluated and monitored. A workup for the syncope was negative. There was no signif icant ectopy and then later it then turned out to be more of a near syncopal episode, perhaps related to Benadryl or the itching itself. She was comfortable. vp celebrity services reached out to the landlor d at her city housing who had the apartment fumigated once again. Infectious disease consultation wa s called and surgical evaluation was called to biopsy the wound to rule out any type of peculiar vasc ulitis. The rash itself was discrete ulcerated lesions, they looked like bites. My impression was t hat this was bedbugs, but it seemed to have lasted for quite some time in spite of the house being tr eated for such. The patient was clinically stable, her heart monitor was unremarkable, she no longer needed antibiotics, her wounds were healing nicely, the itching had subsided and she was ready for d ischarge to home on 06/24/16. FINAL DISCHARGE DIAGNOSES: 1. Near syncope at home, possibly related to medication effect versus itching. 2. Multiple skin lesions/bites with a pruritic rash. Dhaval Allen MD cc: 439 TT: 06/25/2016 22:09:58 jonnathan
--- NOTE | 2016-06-30 06:28 | PQF GENQUE ---
This form is a permanent part of the medical record Dr. Sheehan, Clarification of your documentation is requested to better reflect the severity of illness and intensity of treatment of your patient. Indicators present Pt was diagnosed with sinus bradycardia. Also, she have multiple skin lesions/ pruritic rash. We just received the skin biopsy report yesterday. Please see the result in the EMR and if you can provide us a specific diagnosis. Thank you. 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 Cara Sheehan PHYSICIAN'S RESPONSE Based on your medical judgment of the clinical indicators outlined above please clarify the following: [] Practitioner response [] If unable to determine, please check the box, sign and date. Present On Admission (POA) Indicator: [] Present at the time of admission [] Not present at the time of admission [] Clinically Undetermined In responding to this query, please exercise your independent professional judgment. The fact that a question is asked does not imply that any particular answer is desired or expected. Thank you for your clarification on this documentation. If you have any questions please call:[ ] * Thank you, [ ]ARACELIS CASTAÑEDAcutting table operator first [employer]TT[employer]
== END 2016-06-24 15:44 | disposition home or self-care (01) | DRG 309 ==
LOC: ED 21:24 → ERH 23:03 → 3RNO 06-21 00:32 → OBSVTOIN 06-22 13:29
PROVIDERS: ADMIT Internal Medicine; ATTEND Internal Medicine
PROC: 0HB6XZX Excision of Back Skin, External Approach, Diagnostic (ICD-10-PCS; principal; 2016-06-23)
DX: I49.5 Sick sinus syndrome (principal); I50.32 Chronic diastolic (congestive) heart failure; I42.0 Dilated cardiomyopathy; N28.0 Ischemia and infarction of kidney; I11.0 Hypertensive heart disease with heart failure; L95.8 Other vasculitis limited to the skin; B86 Scabies; I48.91 Unspecified atrial fibrillation; I08.3 Combined rheumatic disorders of mitral, aortic and tricuspid valves; T44.7X5A Adverse effect of beta-adrenoreceptor antagonists, initial encounter; F17.210 Nicotine dependence, cigarettes, uncomplicated; D73.5 Infarction of spleen; E87.6 Hypokalemia; R00.1 Bradycardia, unspecified; Z79.01 Long term (current) use of anticoagulants; Z79.82 Long term (current) use of aspirin

== ENCOUNTER 2016-11-21 12:50 | Inpatient (IN) | payer MEDICARE, BC ==
--- NOTE | 2016-11-21 13:16 | ED PDOC ---
Arrival/HPI - General Chief Complaint: High Blood Pressure Time Seen by Provider: 11/21/16 12:56 Historian: Patient, Family - History of Present Illness Narrative History of Present Illness (Text): 11/21/16 13:04 A 71 year old female, whose past medical history includes atrial fibrillation on Coumadin, positive stress but no catheterization, brought into the emergency department by family complaining of speech changes. Granddaughter reports patient has been stuttering and having trouble speaking for the past 2 days. She notes patient took Aspirin 181 mg this morning. Patient notes mild left lower abdominal pain but denies any other complaints at this time. Patient has not been compliant with taking her Coumadin, unknown for how long. History and ROS limited due to patients state. Patient was seen prior her symptoms by PMD for high blood pressure. Granddaughter also reports skin wounds throughout patients body, she notes she followed up with PMD/Resident Buyer and placed on antibiotics. PMD: Dr. Bruno Allen Time/Duration: Other (2 days) Symptom Course: Unchanged Quality: Other Context: Home Past Medical History - Provider Review Nursing Documentation Reviewed: Yes - Infectious Disease Hx of Infectious Diseases: None - Cardiac Hx Cardiac Disorders: Yes (AF, mod mitral regurgitation,) Hx Hypertension: Yes - Pulmonary Hx Chronic Obstructive Pulmonary Disease (COPD): Yes (current heavy smoker) - Neurological HX Cerebrovascular Accident: Yes - HEENT Hx HEENT Disorder: Yes Hx Blind: No Hx Cataracts: No Hx Deafness: No Hx Difficulty Chewing: No Hx Epistaxis: No Hx Glaucoma: No Hx Macular Degeneration: Yes - Renal Hx Renal Disorder: No Hx Renal Failure: No - Endocrine/Metabolic Hx Endocrine Disorders: No Hx Diabetes Mellitus Type 1: No Hx Diabetes Mellitus Type 2: No - Hematological/Oncological Hx Blood Disorders: No Hx AIDS: No Hx Anemia: No Hx Cancer: No Hx Chemotherapy: No Hx Cirrhosis: No Hx Hemophilia: No Hx Hepatitis A: No Hx Hepatitis B: No Hx Hepatitis C: No Hx Metastasis: No Hx Shingles: No Hx Sickle Cell Disease: No Hx Unexplained Bleeding: No - Integumentary Hx Dermatological Disorder: Yes Hx Basal Cell Carcinoma: No Hx Eczema: No Hx Melanoma: No Hx Psoriasis: No Hx Squamous Cell Carcinoma: No Other/Comment: currently has multiple red spots on BLE and upper back - Musculoskeletal/Rheumatological Hx Arthritis: (LBP) - Gastrointestinal Hx Gastrointestinal Disorders: No Hx Colostomy: No Hx Crohn's Disease: No Hx Diverticulitis: No Hx Gall Bladder Disease: No Hx Gastroesophageal Reflux: No Hx Ileostomy: No Hx Liver Failure: No Hx Pancreatitis: No HX Swallowing Problems: No - Genitourinary/Gynecological Hx Genitourinary Disorders: Yes Hx Hematuria: No Hx Incontinence: No Hx Sexually Transmitted Diseases: No Hx Urinary Tract Infection: Yes - Psychiatric Hx Psychophysiologic Disorder: No Hx Anxiety: No Hx Bipolar Disorder: No Hx Depression: No Hx Emotional Abuse: No Hx Hallucinations: No Hx Panic Disorder: No Hx Post Traumatic Stress Disorder: No Hx Psychosis: No Hx Physical Abuse: No Hx Schizophrenia: No Hx Sexual Abuse: No Hx Substance Use: No - Surgical History Hx Amputation: No Hx Cardiac Catheterization: No Hx Cholecystectomy: No Hx Coronary Stent: No Hx Gastric Bypass Surgery: No Hx Hysterectomy: No Hx Joint Replacement: No Hx Kidney Transplant: No Hx Liver Transplant: No Hx Mastectomy: No Hx Musculoskeletal Surgery: No Hx Open Heart Surgery: No Hx Orthopedic Surgery: No Hx Splenectomy: No Hx Valve Replacement: No - Anesthesia Hx Anesthesia: Yes Hx Anesthesia Reactions: No Hx Malignant Hyperthermia: No - Suicidal Assessment Feels Threatened In Home Enviroment: No Family/Social History - Physician Review Nursing Documentation Reviewed: Yes Family/Social History: No Known Family HX Smoking Status: Heavy Smoker > 10 Cigarettes Daily Hx Alcohol Use: No Hx Substance Use: No Allergies/Home Meds Allergies/Adverse Reactions: Allergies No Known Allergies Allergy (Verified 11/21/16 17:00) Home Medications: Home Meds Medication Instructions Recorded Confirmed Furosemide [Lasix] 20 mg PO DAILY 11/21/16 11/21/16 Metoprolol Tartrate [Lopressor] 50 mg PO BID 11/21/16 11/21/16 Neomycin/Bacitracin/Polymyxinb 28 gm TP DAILY 11/21/16 11/21/16 [Triple Antibiotic Ointment] Temazepam [Restoril] 30 mg PO HS 11/21/16 11/21/16 Review of Systems - Review of Systems Systems not reviewed;Unavailable: Acuity of Condition Physical Exam Vital Signs Reviewed: Yes Vital Signs Temp Pulse Pulse Resp BP BP Pulse Ox 11/21/16 15:35 71 25 H 123/81 99 11/21/16 14:31 80 23 157/80 H 97 11/21/16 12:39 97.9 F 92 H 92 H 20 150/82 150/82 97 Temperature: Afebrile Blood Pressure: Normal Pulse: Tachycardic Respiratory Rate: Normal Appearance: Positive for: Non-Toxic, Other (Tearful, Anxious appearing. Following some commands.) Pain Distress: None - Systems Exam Head: Present: Atraumatic, Other (Tearful, Erythema to face) Pupils: Present: PERRL Extroacular Muscles: Present: EOMI Conjunctiva: Present: Normal Mouth: Present: Dry (Slighty dehydrated). No: Normal Tounge (Erythematous tongue) Neck: Present: Normal Range of Motion Respiratory/Chest: Present: Clear to Auscultation, Good Air Exchange. No: Respiratory Distress, Accessory Muscle Use Cardiovascular: Present: Regular Rate and Rhythm, Normal S1, S2. No: Murmurs Abdomen: Present: Normal Bowel Sounds. No: Tenderness, Distention, Peritoneal Signs Back: Present: Normal Inspection Upper Extremity: Present: NORMAL PULSES, Other (Left upper extremity ataxia greater than right). No: Cyanosis, Edema Lower Extremity: Present: NORMAL PULSES, Other (Bilateral lower extremity ataxia ). No: Edema, CALF TENDERNESS Neurological: Present: GCS=15, CN II-XII Intact, Normal Sensory Function. No: Speech Normal (Expressive aphasia, dysarthria), Motor Func Grossly Intact, Gait Normal (Slight ataxia bilaterally) Skin: Present: Warm, Dry, Normal Color, Other (Multiple skin lesions/helaing sores throughout all body, including back and extremities. No signs of sepsis.) . No: Rashes Psychiatric: Present: Alert, Anxious, Other (Following some commands, not all) Medical Decision Making ED Course and Treatment: 11/21/16 13:04 Impression: A 71 year old female brought in for speech changes. On exam, expressive aphasia and slight ataxia in extremities. Plan: -- Head CT -- Chest xray -- EKG -- Labs -- IV fluids -- Reassess and disposition Progress Notes: 11/21/16 12:35 Case discussed in detail with Dr. Wheatley. Plan is to admit under Dr. Alfaro for TIA observation work up. Case discussed with Dr. Alfaro, who accepts admission under her service. 11/21/16 13:57 EKG shows NSR at 80 BPM with LAD, no ST changes, no LVH, QRS 86 ms and W[place] 102 ms. Interpreted by me. Report Date : 11/21/2016 14:10:45 PROCEDURE: CT HEAD WITHOUT CONTRAST. Dictator : Bruno Garcia MD IMPRESSION: There is a new area of hypodensity in the left posterior temporal lobe that is suspicious for an acute or subacute infarct. 11/21/16 14:19 Las reviewed, Troponin slightly elevated. Will order BNP. No changes in EKG to suggest ischemia. Will order Aspirin. Discussed findings of neuro exam with neurologist and PMD. Will hold off on Heparin due to subacute stroke. Leukocytes of 1400, will check urine and chest xray to rule out infection. Report Date : 11/21/2016 15:04:37 PROCEDURE: CHEST RADIOGRAPH, 1 VIEW Dictator : Bruno Garcia MD IMPRESSION: No active disease. 11/21/16 15:[address] Wheatley, who recommends MRI with and without contrast, and carotid doppler. Reassessment Condition: Re-examined - Critical Care Critical Care Minutes: 30 minutes - Lab Interpretations Lab Results: 11/21/16 13:15 11/21/16 13:15 Lab Results 11/21/16 14:04: Blood Type A NEGATIVE, Antibody Screen Negative, BBK History Checked No verified bt 11/21/16 13:15: NT-Pro-B Natriuret Pep 1220 H 11/21/16 13:15: Hemoglobin A1c 6.0 11/21/16 13:15: Sodium 135, Potassium 3.9, Chloride 96 L, Carbon Dioxide 30, Anion Gap 13, BUN 25 H, Creatinine 0.9, Est GFR ( Amer) > 60, Est GFR ( Non-Af Amer) > 60, Random Glucose 117 H, Calcium 10.3, Total Bilirubin 1.0, AST 37 H, ALT 24, Alkaline Phosphatase 41, Troponin I 0.12 D, Total Protein 7.2, Albumin 4.0, Globulin 3.1, Albumin/Globulin Ratio 1.3, Triglycerides 149, Cholesterol 168, LDL Cholesterol Direct 96, HDL Cholesterol 48 11/21/16 13:15: PT 11.1, INR 1.03, APTT 27.2 11/21/16 13:15: WBC 14.0 H D, RBC 5.66, Hgb 15.4, Hct 44.6, MCV 78.8 L, MCH 27.2 , MCHC 34.5, RDW 16.5 H, Plt Count 131, MPV 11.5 H, Gran % 74.9 H, Lymph % (Auto ) 15.5 L, Bandera % (Auto) 9.4 H, Eos % (Auto) 0.1 L, Baso % (Auto) 0.1, Gran # 10.49 H, Lymph # 2.2, Bandera # 1.3 H, Eos # 0.0, Baso # 0.01 I have reviewed the lab results: Yes - RAD Interpretation Radiology Orders: 11/21/16 13:06 CHEST ONE VIEW [RAD] Stat 11/21/16 13:07 HEAD W/O CONTRAST [CT] Stat - EKG Interpretation EKG Interpretation (Text): 11/22/16 21:22 NSR no afib Interpreted by ED Physician: Yes Type: 12 lead EKG - Medication Orders Current Medication Orders: Acetaminophen (Tylenol 325mg Tab) 650 mg PO Q4H PRN PRN Reason: Pain, Mild (1-3) Aspirin (Ecotrin) 81 mg PO DAILY [facility] Last Admin: 11/22/16 09:55 Dose: 81 mg Atorvastatin Calcium (Lipitor) 20 mg PO DIN [facility] Last Admin: 11/22/16 17:34 Dose: 20 mg Furosemide (Lasix) 20 mg PO DAILY [facility] Last Admin: 11/22/16 09:54 Dose: 20 mg MAR Blood Pressure Document 11/22/16 09:54 GE (Rec: 11/22/16 09:55 [id number]) Blood Pressure Blood Pressure (100/60-150/90) 138/66 Home Med (Home Med) 1 unit PO HS [facility] Last Admin: 11/22/16 21:05 Dose: 1 unit Sodium Chloride (Sodium Chloride 0.9%) 1,000 mls @ 100 mls/hr IV .Q10H [facility] Last Admin: 11/22/16 21:05 Dose: 100 mls/hr eMAR Start Stop Document 11/22/16 21:05 CDL (Rec: 11/22/16 21:06 CDL [id number]) Intravenous Solution Start Date 11/22/16 Start Time 21:06 Metoprolol Tartrate (Lopressor) 50 mg PO BRKDIN [facility] Last Admin: 11/22/16 17:33 Dose: 50 mg MAR Pulse and Blood Pressure Document 11/22/16 17:33 GE (Rec: 11/22/16 17:34 GE [id number]) Pulse Pulse Rate (60-90) 75 Blood Pressure Blood Pressure (100/60-150/90) 114/51 Neomycin/Polymyxin/Bacitracin (Neosporin Triple Antibiotic Oint) 0 gm TOP BID [facility] Last Admin: 11/22/16 17:34 Dose: 1 applic Nicotine (Nicoderm Cq) 1 patch TD DAILY [facility] Last Admin: 11/22/16 09:55 Dose: 1 patch MAR Transdermal Patch Site Document 11/22/16 09:55 GE (Rec: 11/22/16 09:55 GE [id number]) Transdermal Patch Site Transdermal Patch Site Left Shoulder Discontinued Medications Aspirin (Aspirin Chewable) 243 mg PO STAT STA Stop: 11/21/16 14:15 Last Admin: 11/21/16 14:25 Dose: 243 mg Pneumococcal Polyvalent Vaccine (Pneumovax 23 Vaccine) 0.5 ml IM .ONCE ONE Stop: 11/21/16 20:05 Last Admin: 11/22/16 02:25 Dose: - Scribe Statement The provider has reviewed the documentation as recorded by the Heidy Huerta Provider Scribe Attestation: All medical record entries made by the [employer] were at my direction and personally dictated by me. I have reviewed the chart and agree that the record accurately reflects my personal performance of the history, physical exam, medical decision making, and the department course for this patient. I have also personally directed, reviewed, and agree with the discharge instructions and disposition. Disposition/Present on Arrival - Present on Arrival Any Indicators Present on Arrival: No History of DVT/PE: No History of Uncontrolled Diabetes: No Urinary Catheter: No History of Decub. Ulcer: No History Surgical Site Infection Following: None - Disposition Have Diagnosis and Disposition been Completed?: Yes Diagnosis: CVA (cerebral vascular accident) Disposition: HOSPITALIZED Disposition Time: 15:00 Patient Plan: Admission, Telemetry Patient Problems: Current Active Problems Problem Status Onset CVA (cerebral vascular accident) Acute Condition: IMPROVED
[2016-11-21 13:19] LABS: BASO # 0.01 K/mm3 (0.0-2.0); BASO % 0.1 % (0.0-3.0); EOS % 0.1 % (1.5-5.0); GRAN # 10.49 (1.4-6.5); GRAN % 74.9 % (50.0-68.0); HEMATOCRIT 44.6 % (36.0-48.0); LYMPH # 2.2 (1.2-3.4); LYMPH % 15.5 % (22.0-35.0); MEAN CELL VOLUME 78.8 fl (80.0-105.0); MEAN CORPUSCULAR HEMOGLOBIN 27.2 pg (25.0-35.0); MEAN CORPUSCULAR HGB CONC 34.5 g/dl (31.0-37.0); MEAN PLATELET VOLUME 11.5 fl (7.0-11.0); MONO # 1.3 (0.1-0.6); MONO % 9.4 % (1.0-6.0); RED CELL DISTRIBUTION WIDTH 16.5 % (11.5-14.5)
[2016-11-21 13:31] LABS: INR 1.03 (0.93-1.08); PARTIAL THROMBOPLASTIN TIME 27.2 Seconds (23.7-30.8)
[2016-11-21 13:33] LABS: ALB/GLOB RATIO 1.3 (1.1-1.8); ALKALINE PHOSPHATASE 41 U/L (38-126); ALT/SGPT 24 U/L (7-56); AST/SGOT 37 U/L (14-36); BLOOD UREA NITROGEN 25 mg/dL (7-21); CALCIUM 10.3 mg/dL (8.4-10.5); CARBON DIOXIDE 30 mmol/L (21-33); CHLORIDE 96 mmol/L (98-107); CHOLESTEROL 168 mg/dL (130-200); GFR AFRICAN-AMERICAN > 60; GLUCOSE,RANDOM 117 mg/dL (70-110); POTASSIUM 3.9 mmol/L (3.6-5.0); SODIUM 135 mmol/L (132-148); TOTAL PROTEIN 7.2 g/dL (5.8-8.3)
[2016-11-21] MEDS: Sodium Chloride 0.9% 1,000 ML IV SCH (13:45)
[2016-11-21 14:07] LABS: TROPONIN I 0.12 ng/mL
--- NOTE | 2016-11-21 14:12 | CT ---
PROCEDURE: CT HEAD WITHOUT CONTRAST. HISTORY: difficulty speaking COMPARISON: 06/20/2016 TECHNIQUE: Axial computed tomography images were obtained through the head/brain without intravenous contrast. Radiation dose: Total exam DLP = 726 mGy-cm. This CT exam was performed using one or more of the following dose reduction techniques: Automated exposure control, adjustment of the mA and/or kV according to patient size, and/or use of iterative reconstruction technique. FINDINGS: HEMORRHAGE: No intracranial hemorrhage. BRAIN: There is a new area of hypodensity in the left posterior temporal lobe that is suspicious for an acute or subacute infarct. This can be seen on image 25 series 2. This was not present on the previous exam. There is chronic encephalomalacia in the left parietal lobe VENTRICLES: Unremarkable. No hydrocephalus. CALVARIUM: Unremarkable. PARANASAL SINUSES: Unremarkable as visualized. No significant inflammatory changes. MASTOID AIR CELLS: Unremarkable as visualized. No inflammatory changes. OTHER FINDINGS: None. IMPRESSION: There is a new area of hypodensity in the left posterior temporal lobe that is suspicious for an acute or subacute infarct.
--- NOTE | 2016-11-21 15:06 | RAD ---
PROCEDURE: CHEST RADIOGRAPH, 1 VIEW HISTORY: difficulty speaking COMPARISON: 06/20/2016 FINDINGS: LUNGS: Clear. PLEURA: No pneumothorax or pleural fluid seen. CARDIOVASCULAR: Mild cardiomegaly OSSEOUS STRUCTURES: No significant abnormalities. VISUALIZED UPPER ABDOMEN: Normal. OTHER FINDINGS: None. IMPRESSION: No active disease.
[2016-11-21 15:16] LABS: URINE BILIRUBIN NEGATIVE (NEGATIVE); URINE BLOOD NEGATIVE (NEGATIVE); URINE GLUCOSE (UA) NEGATIVE (NEGATIVE); URINE KETONE NEGATIVE (NEGATIVE); URINE LEUKOCYTE ESTERASE NEGATIVE Leu/uL (NEGATIVE); URINE PROTEIN NEGATIVE mg/dL (<30 mg/dL); URINE UROBILINOGEN 0.2 E.U./dL (<1 E.U./dL)
[2016-11-21 15:17] LABS: URINE APPEARANCE CLEAR (CLEAR); URINE COLOR YELLOW (YELLOW)
[2016-11-21] MEDS ORDERED: Sodium Chloride 0.9% 1,000 ML IV STA (16:08)
[2016-11-21] MEDS: Bacitracin/Neomycin/Polymyxin Oint(30GM) TOP SCH (18:00)
[2016-11-21] MEDS ORDERED: Pneumococcal 23-Valent Vaccine IM ONE (20:04)
[2016-11-21 20:05] VITALS: BMI 24.7
[2016-11-22] MEDS: Sodium Chloride 0.9% 1,000 ML IV SCH ×3 (00:18→21:05)
--- NOTE | 2016-11-22 02:32 | CON ---
HISTORY OF PRESENT ILLNESS: This is a 71-year-old female with past medical history of atrial fibrillation on Coumadin, came here to be complaining of speech problems, speech changes, and the patient was stuttering, and the patient took aspirin in the morning and brought to the hospital to rule out any stroke. PAST MEDICAL HISTORY: Atrial fibrillation. ALLERGIES: NO KNOWN DRUG ALLERGIES. HOME MEDICATIONS: Furosemide, Lopressor, and Restoril. REVIEW OF SYSTEMS: Slurring of the speech. PHYSICAL EXAMINATION HEENT: Normocephalic and atraumatic. NECK: Supple. NEUROLOGIC: Alert, awake, and oriented to self and place, not to the time. Cranial nerves II through XII are tested. Pupils are reactive. EOM intact. Visual field full. No facial asymmetry. Tongue midline. Motor examination, moves all the extremities spontaneously. Deep tendon reflexes 1+. Both plantars are downgoing. Sensory appears intact. Cerebellar, gait deferred. IMPRESSION: Possibly transient ischemic attack versus stroke and CAT scan of the head did not show any bleed. We will do the MRI of the head and further management after the results of above test and carotid Doppler. Continue present management. We will follow up. Roddy Wheatley MD
--- NOTE | 2016-11-22 08:48 | MRI ---
PROCEDURE: MRI BRAIN WITH AND WITHOUT CONTRAST HISTORY: CVA COMPARISON: Noncontrast head CT from 11/21/2016 TECHNIQUE: Multiplanar, multisequence MR images of the brain were obtained with and without intravenous contrast enhancement. FINDINGS: HEMORRHAGE: None DWI: There are multifocal areas of restricted diffusion in the left posterior parietal cortex, insular cortex, lateral parietal cortex, temporal lobe cortex and parieto-occipital watershed territory cortex. BRAIN PARENCHYMA: There is corresponding increased FLAIR signal. There are mild chronic microangiopathic changes. There is no mass, mass effect or abnormal extra-axial fluid collection. ENHANCEMENT: No abnormal intracranial enhancement. VENTRICLES: There is mild age-related global parenchymal volume loss and proportionate enlargement of the ventricles and cortical sulci. CRANIUM: There is normal bone marrow signal pattern. ORBITS: Grossly unremarkable. PARANASAL SINUSES/MASTOIDS: Predominantly clear. VASCULAR SYSTEM: Skull base flow voids intact. OTHER FINDINGS: None . IMPRESSION: Multifocal left MCA and MCA CORRECTIONAL CORPORAL watershed territory acute/ early subacute cortical infarctions in the left insular cortex, posterior parietal lobe, temporal lobe and parieto-occipital watershed territory. Mild chronic microangiopathic changes and mild age-related global parenchymal volume loss. A preliminary report was provided by [employer].
--- NOTE | 2016-11-22 09:44 | CARD ---
APPROVED REPORT EKG Measurement Heart [id number] <Conclusion> Sinus rhythm with short OK Possible Left atrial enlargement ST abnormality, possible digitalis effect Abnormal ECG
[2016-11-22] MEDS: Bacitracin/Neomycin/Polymyxin Oint(30GM) TOP SCH ×2 (09:55→17:34)
--- NOTE | 2016-11-22 10:07 | CP.PCM.PN ---
<Mer Winslow - Last Filed: 11/22/16 10:04> Subjective - Date & Time of Evaluation Date of Evaluation: 11/22/16 Time of Evaluation: 10:04 - Subjective Subjective: Neurology Progress Note for Danya Rubalcava PGY2 Patient seen and examined at bedside. As per nursing there were no acute overnight events. Upon examination, patient is resting comfortably in bed. She is having trouble communicating due to her aphasia. Patient get frustrated when unable to communicate. ROS could not be obtained. Objective - Vital Signs/Intake and Output Vital Signs (last 24 hours): Temp Pulse Resp BP Pulse Ox 98.4 F 72 19 138/66 94 L 11/22/16 05:55 11/22/16 08:07 11/22/16 05:55 11/22/16 09:54 11/22/16 05:55 Intake and Output: 11/22/16 11/22/16 06:59 18:59 Intake Total 1300 Output Total 0 Balance 1300 - Medications Medications: Current Medications Acetaminophen (Tylenol 325mg Tab) 650 mg PO Q4H PRN PRN Reason: Pain, Mild (1-3) Aspirin (Ecotrin) 81 mg PO DAILY [facility] Last Admin: 11/22/16 09:55 Dose: 81 mg Atorvastatin Calcium (Lipitor) 10 mg PO DIN [facility] Furosemide (Lasix) 20 mg PO DAILY [facility] Last Admin: 11/22/16 09:54 Dose: 20 mg Home Med (Home Med) 1 unit PO HS [facility] Last Admin: 11/21/16 21:56 Dose: 1 unit Sodium Chloride (Sodium Chloride 0.9%) 1,000 mls @ 100 mls/hr IV .Q10H [facility] Last Admin: 11/22/16 09:56 Dose: 100 mls/hr Metoprolol Tartrate (Lopressor) 50 mg PO BRKDIN [facility] Last Admin: 11/22/16 08:07 Dose: 50 mg Neomycin/Polymyxin/Bacitracin (Neosporin Triple Antibiotic Oint) 0 gm TOP BID [facility] Last Admin: 11/22/16 09:55 Dose: 1 applic Nicotine (Nicoderm Cq) 1 patch TD DAILY [facility] Last Admin: 11/22/16 09:55 Dose: 1 patch - Labs Labs: PT 11.1 Seconds (9.9-11.8) 11/21/16 13:15 INR 1.03 (0.93-1.08) 11/21/16 13:15 APTT 27.2 Seconds (23.7-30.8) 11/21/16 13:15 - Constitutional Appears: No Acute Distress - Head Exam Head Exam: ATRAUMATIC, NORMAL INSPECTION, NORMOCEPHALIC - Eye Exam Eye Exam: EOMI, Normal appearance, PERRL Pupil Exam: NORMAL ACCOMODATION - ENT Exam ENT Exam: Mucous Membranes Moist - Neck Exam Neck Exam: Full ROM - Respiratory Exam Respiratory Exam: Clear to Ausculation Bilateral, NORMAL BREATHING PATTERN. absent: Rales, Rhonchi, Wheezes - Cardiovascular Exam Cardiovascular Exam: REGULAR RHYTHM, +S1, +S2. absent: Gallop, Rubs, Murmur - GI/Abdominal Exam GI & Abdominal Exam: Soft, Normal Bowel Sounds. absent: Rigid, Tenderness, Mass , Rebound - Extremities Exam Extremities Exam: Normal Inspection. absent: Calf Tenderness, Pedal Edema - Neurological Exam Neurological Exam: Alert, Awake. absent: Motor Sensory Deficit Additional comments: Motor aphasia. Patient unable to complete full sentences or finish her words. No pronator drift seen. Motor function intact. - Psychiatric Exam Psychiatric exam: Normal Affect, Normal Mood - Skin Skin Exam: Dry, Intact, Normal Color, Warm Assessment and Plan - Assessment and Plan (Free Text) Assessment: This is a 71Y F with PMH HTN, A.fib, heavy smoker and medication non-compliance found to have multifocal L MCA acute cortical infractions in the L insular cortex, posterior parietal lobe, temporal lobe and parieto-occipital watershed territory. Patient is supposed to be on Coumadin, but INR is subtherapeutic and is still a heavy smoker. Hgb A1c noted to be 6.0. CVA secondary to ncontrolled risk factors such as heavy tobacco use and Coumadin non-compliance. Leukocytosis can be secondary to inflammation from infarction since onset of symptoms was a couple days ago. Plan: - ASA, Lipitor 20mg - Counseled patient on smoking cessation as well as medication compliance - Recommend to restart Coumadin - Speech therapy/Swallow eval - Physical therapy/Occupational therapy - Will order head and neck MRA - Maintain adequate hydration Case seen, discussed and reviewed with attending, Dr. Wheatley. Danya Winslow PGY2 <Arnav Wheatley - Last Filed: 11/22/16 10:52> Objective - Vital Signs/Intake and Output Vital Signs (last 24 hours): Temp Pulse Resp BP Pulse Ox 98.4 F 72 19 138/66 94 L 11/22/16 05:55 11/22/16 08:07 11/22/16 05:55 11/22/16 09:54 11/22/16 05:55 Intake and Output: 11/22/16 11/22/16 06:59 18:59 Intake Total 1300 Output Total 0 Balance 1300 - Medications Medications: Current Medications Acetaminophen (Tylenol 325mg Tab) 650 mg PO Q4H PRN PRN Reason: Pain, Mild (1-3) Aspirin (Ecotrin) 81 mg PO DAILY [facility] Last Admin: 11/22/16 09:55 Dose: 81 mg Atorvastatin Calcium (Lipitor) 20 mg PO DIN [facility] Furosemide (Lasix) 20 mg PO DAILY [facility] Last Admin: 11/22/16 09:54 Dose: 20 mg Home Med (Home Med) 1 unit PO HS [facility] Last Admin: 11/21/16 21:56 Dose: 1 unit Sodium Chloride (Sodium Chloride 0.9%) 1,000 mls @ 100 mls/hr IV .Q10H [facility] Last Admin: 11/22/16 09:56 Dose: 100 mls/hr Metoprolol Tartrate (Lopressor) 50 mg PO BRKDIN [facility] Last Admin: 11/22/16 08:07 Dose: 50 mg Neomycin/Polymyxin/Bacitracin (Neosporin Triple Antibiotic Oint) 0 gm TOP BID [facility] Last Admin: 11/22/16 09:55 Dose: 1 applic Nicotine (Nicoderm Cq) 1 patch TD DAILY [facility] Last Admin: 11/22/16 09:55 Dose: 1 patch - Labs Labs: PT 11.1 Seconds (9.9-11.8) 11/21/16 13:15 INR 1.03 (0.93-1.08) 11/21/16 13:15 APTT 27.2 Seconds (23.7-30.8) 11/21/16 13:15 Attending/Attestation - Attestation I have personally seen and examined this patient.: Yes I have fully participated in the care of the patient.: Yes I have reviewed all pertinent clinical information, including history, physical exam and plan: Yes
--- NOTE | 2016-11-22 14:06 | HP ---
HISTORY OF PRESENT ILLNESS: The patient is a 71-year-old female who called me earlier in the day complaining of not feeling well. On the phone, her speech was slurred. She was slightly confused. She did not want to come to the hospital; however, I strongly urged her to, I finally called [facility] to go to her apartment and bring her to the emergency room where she was diagnosed with a possible stroke in evaluation and was admitted. PAST MEDICAL HISTORY: The patient is known to have a past medical history positive for coronary atherosclerosis. She had a positive thallium stress test in 04/2011; however, she refused coronary catheterization. She is known to have peripheral vascular disease with a left superficial femoral artery occlusive disease. She was hospitalized in 10/2015 with a right pleural effusion and congestive heart failure. Her last hospitalization was in 05/2016 for a persistent pruritic rash covering most of her body. A skin biopsy was done by Dr. Sheehan at that time. MEDICATIONS: Her medications at the time of admission included metoprolol 50 mg twice a day, Lasix 20 mg two tablets a day, and temazepam 30 mg at bedtime. In the past, she had been taking isosorbide, warfarin, aspirin, and Celebrex; however, they had fallen off her list. The metoprolol was stopped during the 2012 hospitalization because of bradycardia. ALLERGIES: SHE HAS NO KNOWN MEDICAL ALLERGIES. SOCIAL HISTORY: She continues to smoke cigarettes. She is a nonalcoholic drinker. She lives alone. PHYSICAL EXAMINATION: VITAL SIGNS: Her blood pressure is 161/74, heart rate of 79, and she is afebrile. HEENT: The head, eyes, ears, nose, and throat are unremarkable. NECK: Supple with no lymphadenopathy. No goiter. HEART: Regular. LUNGS: Clear to auscultation and percussion. ABDOMEN: Soft and nontender. EXTREMITIES: Show mild bilateral ankle edema. NEUROLOGIC: There is a slight weakness on the right side and her speech is slurred. LABORATORY STUDIES: Show the patient to have a negative type blood. Her PT/INR is 1.03. White blood cell count is 14.0, hemoglobin and hematocrit are 15.4 and 44.6 respectively, and platelet count is 131. Her sodium is 135, potassium is 3.9, blood urea nitrogen is 25, and creatinine 0.9. Nonfasting glucose is 117. BNP was elevated at 1220. Chest x-ray showed no acute disease. EKG showed regular sinus rhythm with left atrial enlargement. CAT scan of the head showed a left posterotemporal lobe infarct, acute versus subacute. IMPRESSION AND PLAN: The patient will be going for MRI of the brain later on today. Neurology consult is requested. The patient will be reevaluated in the morning and followed closely during her hospital stay. Bruno Allen MD MTDD
--- NOTE | 2016-11-23 00:07 | PN ---
DATE: 11/22/2016 SUBJECTIVE: The patient seen this Monday, in room #264, bed #2. She is sitting at the edge of the bed, having lunch, somewhat upset over the density of the expressive aphasia from the stroke. PHYSICAL EXAMINATION: HEENT: Conjunctivae are pink. Mucous membranes are moist. NECK: Supple without masses. HEART: Regular, not tachycardic. LUNGS: Clear with decreased breath sounds, that of COPD. EXTREMITIES: Thin with no edema. NEUROLOGIC: There is some motor weakness on the right side, dense expressive aphasia in speech. Neurology notes appreciated. CT scan of the brain and MRI were noted with multiple areas of infarct making me more suspicious for small vessel disease, but we will need to talk to Neurology about the possibility of embolic phenomenon. I reassured the patient and encouraged her to continue with speech and physical therapy. IMPRESSION: 1. Stroke. 2. Chronic obstructive pulmonary disease. 3. Tobacco use. 4. Chronic leukocytosis. Dhaval Allen MD
[2016-11-23] MEDS: Sodium Chloride 0.9% 1,000 ML IV SCH ×4 (05:51→21:28)
--- NOTE | 2016-11-23 08:15 | CP.PCM.PN ---
<Mer Winslow - Last Filed: 11/23/16 14:03> Subjective - Date & Time of Evaluation Date of Evaluation: 11/23/16 Time of Evaluation: 08:12 - Subjective Subjective: Neurology Progress Note for Danya Rubalcava PGY2 Patient seen and examined at bedside. As per nursing, there were no acute overnight events. Patient was resting comfortably in bed. She continues to have motor aphasia in her speech. She denies CP, SOB, n/v/d, numbness/tingling, weakness, vision changes, fever or chills. Objective - Vital Signs/Intake and Output Vital Signs (last 24 hours): Temp Pulse Resp BP Pulse Ox 98.3 F 62 19 120/40 L 99 11/23/16 06:00 11/23/16 08:09 11/23/16 06:00 11/23/16 08:09 11/23/16 06:00 Intake and Output: 11/23/16 11/23/16 06:59 18:59 Intake Total 1340 Balance 1340 - Medications Medications: Current Medications Acetaminophen (Tylenol 325mg Tab) 650 mg PO Q4H PRN PRN Reason: Pain, Mild (1-3) Aspirin (Ecotrin) 81 mg PO DAILY [facility] Last Admin: 11/22/16 09:55 Dose: 81 mg Atorvastatin Calcium (Lipitor) 20 mg PO DIN [facility] Last Admin: 11/22/16 17:34 Dose: 20 mg Furosemide (Lasix) 20 mg PO DAILY [facility] Last Admin: 11/22/16 09:54 Dose: 20 mg Home Med (Home Med) 1 unit PO HS [facility] Last Admin: 11/22/16 21:05 Dose: 1 unit Sodium Chloride (Sodium Chloride 0.9%) 1,000 mls @ 100 mls/hr IV .Q10H [facility] Last Admin: 11/23/16 06:54 Dose: 100 mls/hr Metoprolol Tartrate (Lopressor) 50 mg PO BRKDIN [facility] Last Admin: 11/23/16 08:09 Dose: 50 mg Neomycin/Polymyxin/Bacitracin (Neosporin Triple Antibiotic Oint) 0 gm TOP BID [facility] Last Admin: 11/22/16 17:34 Dose: 1 applic Nicotine (Nicoderm Cq) 1 patch TD DAILY [facility] Last Admin: 11/22/16 09:55 Dose: 1 patch - Labs Labs: PT 11.1 Seconds (9.9-11.8) 11/21/16 13:15 INR 1.03 (0.93-1.08) 11/21/16 13:15 APTT 27.2 Seconds (23.7-30.8) 11/21/16 13:15 - Constitutional Appears: No Acute Distress - Head Exam Head Exam: ATRAUMATIC, NORMAL INSPECTION, NORMOCEPHALIC - Eye Exam Eye Exam: Normal appearance, PERRL Pupil Exam: NORMAL ACCOMODATION, PERRL - ENT Exam ENT Exam: Mucous Membranes Moist - Respiratory Exam Respiratory Exam: Clear to Ausculation Bilateral, NORMAL BREATHING PATTERN. absent: Rales, Rhonchi, Wheezes - Cardiovascular Exam Cardiovascular Exam: REGULAR RHYTHM, +S1, +S2. absent: Gallop, Rubs, Murmur - GI/Abdominal Exam GI & Abdominal Exam: Soft, Normal Bowel Sounds. absent: Rigid, Tenderness, Mass , Rebound - Extremities Exam Extremities Exam: Normal Inspection. absent: Calf Tenderness, Pedal Edema - Neurological Exam Neurological Exam: Alert, Awake, CN II-XII Intact Neuro motor strength exam: Left Upper Extremity: 5, Right Upper Extremity: 5, Left Lower Extremity: 5, Right Lower Extremity: 5 Additional comments: Motor aphasia - Psychiatric Exam Psychiatric exam: Normal Affect, Normal Mood - Skin Skin Exam: Dry, Intact, Normal Color, Warm Assessment and Plan - Assessment and Plan (Free Text) Assessment: This is a 71Y F with PMH HTN, A.fib, heavy smoker and medication non-compliance found to have multifocal L MCA acute cortical infractions in the L insular cortex, posterior parietal lobe, temporal lobe and parieto-occipital watershed territory. Patient is supposed to be on Coumadin, but INR is subtherapeutic and is still a heavy smoker. Hgb A1c noted to be 6.0. CVA secondary to uncontrolled risk factors such as heavy tobacco use and Coumadin non-compliance. Leukocytosis can be secondary to inflammation from infarction since onset of symptoms was a couple days ago. MRA head was negative. MRA neck showed >90% stenosis on R ICA stenosis. CVA most likely cardioembolic since it is on the L side of the brain whereas the stenosis is on the R carotid. Plan: - ASA, Lipitor 20mg - Counseled patient on smoking cessation as well as medication compliance - Recommend Vascular surgery evaluation - Speech therapy/Swallow eval - Physical therapy/Occupational therapy - Maintain adequate hydration - Avoid sedating medications Recommend subacute rehab placement upon discharge. Case seen, discussed and reviewed with attending, Dr. Wheatley. Danya Winslow PGY2 <Arnav Wheatley - Last Filed: 11/23/16 14:12> Objective - Vital Signs/Intake and Output Vital Signs (last 24 hours): Temp Pulse Resp BP Pulse Ox 98.6 F 68 18 132/72 99 11/23/16 12:00 11/23/16 14:00 11/23/16 12:00 11/23/16 12:19 11/23/16 06:00 Intake and Output: 11/23/16 11/23/16 06:59 18:59 Intake Total 1340 Balance 1340 - Medications Medications: Current Medications Acetaminophen (Tylenol 325mg Tab) 650 mg PO Q4H PRN PRN Reason: Pain, Mild (1-3) Aspirin (Ecotrin) 81 mg PO DAILY [facility] Last Admin: 11/23/16 12:19 Dose: 81 mg Atorvastatin Calcium (Lipitor) 20 mg PO DIN [facility] Last Admin: 11/22/16 17:34 Dose: 20 mg Furosemide (Lasix) 20 mg PO DAILY [facility] Last Admin: 11/23/16 12:19 Dose: 20 mg Home Med (Home Med) 1 unit PO HS [facility] Last Admin: 11/22/16 21:05 Dose: 1 unit Sodium Chloride (Sodium Chloride 0.9%) 1,000 mls @ 100 mls/hr IV .Q10H [facility] Last Admin: 11/23/16 06:54 Dose: 100 mls/hr Metoprolol Tartrate (Lopressor) 50 mg PO BRKDIN [facility] Last Admin: 11/23/16 08:09 Dose: 50 mg Neomycin/Polymyxin/Bacitracin (Neosporin Triple Antibiotic Oint) 0 gm TOP BID [facility] Last Admin: 11/23/16 12:20 Dose: Not Given Nicotine (Nicoderm Cq) 1 patch TD DAILY [facility] Last Admin: 11/23/16 12:18 Dose: 1 patch - Labs Labs: PT 11.1 Seconds (9.9-11.8) 11/21/16 13:15 INR 1.03 (0.93-1.08) 11/21/16 13:15 APTT 27.2 Seconds (23.7-30.8) 11/21/16 13:15 Attending/Attestation - Attestation I have personally seen and examined this patient.: Yes I have fully participated in the care of the patient.: Yes I have reviewed all pertinent clinical information, including history, physical exam and plan: Yes Notes (Text): 11/23/16 14:12 will eventually need to go back on coumadin once vascular has seen the patient and decided the next course for right ica stenosis.
[2016-11-23] MEDS ORDERED: Gadodiamide 287 MG/ML VIAL (15ML) IV ONE (09:27)
[2016-11-23] MEDS: Bacitracin/Neomycin/Polymyxin Oint(30GM) TOP SCH ×2 (12:20→18:12)
--- NOTE | 2016-11-23 12:35 | MRI ---
PROCEDURE: Magnetic Resonance Angiography Brain HISTORY: CVA COMPARISON: None available. TECHNIQUE: 3D time of flight MR angiography of the intracranial arteries was performed. Rotating maximum intensity projection images were generated. FINDINGS: INTERNAL CAROTID ARTERIES: Unremarkable. The skull base, petrous, cavernous and supraclinoid segments are bilaterally widely patient. ANTERIOR CEREBRAL ARTERIES: There is a hypoplastic right-sided A1 segment. MIDDLE CEREBRAL ARTERIES: Unremarkable. M1 and M2 segments are widely patent. Perisylvian branches grossly symmetric. POSTERIOR CIRCULATION: Basilar Artery: Unremarkable. Distal Vertebral Arteries: Unremarkable. Posterior Cerebral Arteries: Unremarkable. Posterior Inferior Cerebellar Arteries: Unremarkable. ANEURYSM/ VASCULAR MALFORMATIONS: None. OTHER FINDINGS: None. IMPRESSION: Unremarkable MR angiography of the brain.
--- NOTE | 2016-11-23 12:40 | MRI ---
PROCEDURE: MR Angiography of the neck with and without contrast HISTORY: CVA COMPARISON: None available. TECHNIQUE: Contrast enhanced and [id number] angiography of the neck was performed. Rotating 3D maximum intensity projection images of the cervical carotid and vertebral arteries were generated. 15 cc of Omniscan FINDINGS: RIGHT CAROTID ARTERIES: Common Carotid Artery: Normal. Carotid Bifurcation: There is severe stenosis at the origin of the right internal carotid artery. The degree of stenosis is probably greater than 90 percent Internal Carotid Artery:The internal carotid stenosis is best visualized on image 5 of series 601 External Carotid Artery (proximal branches): Normal. LEFT CAROTID ARTERIES: Common Carotid Artery: Normal. Carotid Bifurcation: Normal. Internal Carotid Artery:Normal. External Carotid Artery (proximal branches): Normal. VERTEBRAL ARTERIES: Right Vertebral Artery: Normal. Left Vertebral Artery: Normal. OTHER FINDINGS: None. IMPRESSION: There is severe stenosis at the origin of the right internal carotid artery. The degree of stenosis is probably greater than 90 percent
--- NOTE | 2016-11-23 15:25 | CP.PCM.CON ---
History of Present Illness - History of Present Illness History of Present Illness: Consult note for Dr. Lazcnao Reason for consult: Right ICA stenosis HPI: Patient is a 71F who presented to the ED via ambulance for slurred speech and confusion two days ago. Patient had motor aphasia upon arrival and was found to have multifocal left cerebral infarctions on MRI. History was limited due to aphasia and confusion. Patient admits to some dizziness but she was given Ativan prior to arrival per nursing. Patient was pointing to the LLQ and admitted to pain in this area when coughing. She says this pain is a 2/10 but this may be an unreliable measurement. Patient denies headache, chest pain, SOB , fever, chills, nausea, vomiting, diarrhea, constipation, pain or swelling of extremities, numbness, and tingling. PMH: Afib, CAD, + Thallium stress test (04/2011 - refused cath), PVD (Left superficial femoral artery occlusion), Right pleural effusion (10/2015), CHF Meds: See MAR (ASA) PSH: skin biopsy of diffuse pruritic rash (Dr. Sheehan) Allergies: NKDA SocHx: current smoker, social drinker, lives alone Review of Systems - Review of Systems All systems: reviewed and no additional remarkable complaints except (as per HPI ) Past Patient History - Infectious Disease Hx of Infectious Diseases: None - Past Social History Smoking Status: Heavy Smoker > 10 Cigarettes Daily - CARDIAC Hx Cardiac Disorders: Yes (AF, mod mitral regurgitation,) Hx Hypertension: Yes - PULMONARY Hx Chronic Obstructive Pulmonary Disease (COPD): Yes (current heavy smoker) - NEUROLOGICAL HX Cerebrovascular Accident: Yes - HEENT Hx HEENT Problems: Yes Hx Blind: No Hx Cataracts: No Hx Deafness: No Hx Difficulty Chewing: No Hx Epistaxis: No Hx Glaucoma: No Hx Macular Degeneration: Yes - RENAL Hx Chronic Kidney Disease: No Hx Renal Failure: No - ENDOCRINE/METABOLIC Hx Endocrine Disorders: No Hx Diabetes Mellitus Type 1: No Hx Diabetes Mellitus Type 2: No - HEMATOLOGICAL/ONCOLOGICAL Hx Blood Disorders: No Hx AIDS: No Hx Anemia: No Hx Cancer: No Hx Chemotherapy: No Hx Cirrhosis: No Hx Hemophilia: No Hx Hepatitis A: No Hx Hepatitis B: No Hx Hepatitis C: No Hx Metastesis: No Hx Shingles: No Hx Sickle Cell Disease: No Hx Unexplained Bleeding: No - INTEGUMENTARY Hx Dermatological Problems: Yes Hx Basil Cell: No Hx Eczema: No Hx Melanoma: No Hx Psoriasis: No Hx Squamous Cell: No Other/Comment: currently has multiple red spots on BLE and upper back - MUSCULOSKELETAL/RHEUMATOLOGICAL Hx Arthritis: (LBP) - GASTROINTESTINAL Hx Gastrointestinal Disorders: No Hx Colostomy: No Hx Crohn's Disease: No Hx Diverticulitis: No Hx Gall Bladder Disease: No Hx Gastroesophageal Reflux: No Hx Ileostomy: No Hx Liver Failure: No Hx Pancreatitis: No HX Swallowing Problems: No - GENITOURINARY/GYNECOLOGICAL Hx Genitourinary Disorders: Yes Hx Hematuria: No Hx Incontinence: No Hx Sexually Transmitted Disorders: No Hx Urinary Tract Infection: Yes - PSYCHIATRIC Hx Psychophysiologic Disorder: No Hx Anxiety: No Hx Bipolar Disorder: No Hx Depression: No Hx Emotional Abuse: No Hx Hallucinations: No Hx Panic Symptoms: No Hx Post Traumatic Stress Disorder: No Hx Psychosis: No Hx Physical Abuse: No Hx Schizophrenia: No Hx Sexual Abuse: No Hx Substance Use: No - SURGICAL HISTORY Hx Amputation: No Hx Cardiac Catheterization: No Hx Cholecystectomy: No Hx Coronary Stent: No Hx Gastric Bypass Surgery: No Hx Hysterectomy: No Hx Joint Replacement: No Hx Kidney Transplant: No Hx Liver Transplant: No Hx Mastectomy: No Hx Musculoskeletal Surgery: No Hx Open Heart Surgery: No Hx Orthopedic Surgery: No Hx Splenectomy: No Hx Valve Replacement: No - ANESTHESIA Hx Anesthesia: Yes Hx Anesthesia Reactions: No Hx Malignant Hyperthermia: No Meds Allergies/Adverse Reactions: Allergies Allergy/AdvReac Type Severity Reaction Status Date / Time No Known Allergies Allergy Verified 11/21/16 17:00 - Medications Medications: Current Medications Acetaminophen (Tylenol 325mg Tab) 650 mg PO Q4H PRN PRN Reason: Pain, Mild (1-3) Last Admin: 11/23/16 14:35 Dose: 650 mg Aspirin (Ecotrin) 81 mg PO DAILY [facility] Last Admin: 11/23/16 12:19 Dose: 81 mg Atorvastatin Calcium (Lipitor) 20 mg PO DIN [facility] Last Admin: 11/22/16 17:34 Dose: 20 mg Furosemide (Lasix) 20 mg PO DAILY [facility] Last Admin: 11/23/16 12:19 Dose: 20 mg Home Med (Home Med) 1 unit PO HS [facility] Last Admin: 11/22/16 21:05 Dose: 1 unit Sodium Chloride (Sodium Chloride 0.9%) 1,000 mls @ 100 mls/hr IV .Q10H [facility] Last Admin: 11/23/16 06:54 Dose: 100 mls/hr Metoprolol Tartrate (Lopressor) 50 mg PO BRKDIN [facility] Last Admin: 11/23/16 08:09 Dose: 50 mg Neomycin/Polymyxin/Bacitracin (Neosporin Triple Antibiotic Oint) 0 gm TOP BID [facility] Last Admin: 11/23/16 12:20 Dose: Not Given Nicotine (Nicoderm Cq) 1 patch TD DAILY [facility] Last Admin: 11/23/16 12:18 Dose: 1 patch Physical Exam - Constitutional Appears: Non-toxic, No Acute Distress, Confused - Head Exam Head Exam: NORMAL INSPECTION - Eye Exam Eye Exam: EOMI - ENT Exam ENT Exam: Mucous Membranes Moist - Respiratory Exam Respiratory Exam: NORMAL BREATHING PATTERN. absent: Accessory Muscle Use, Respiratory Distress - Cardiovascular Exam Cardiovascular Exam: Irregular Rhythm. absent: Bradycardia, Tachycardia Additional comments: Right carotid bruit - GI/Abdominal Exam GI & Abdominal Exam: Soft, Tenderness (LLQ TTP). absent: Guarding, Hernia, Rebound - Extremities Exam Extremities exam: Positive for: normal inspection, pedal pulses present (1+ on the right, not palpable on the left ). Negative for: calf tenderness, pedal edema - Neurological Exam Neurological exam: Alert Additional comments: Motor Aphasia Strength testing: Left UE: 3/5 Left LE: 4/5 Right UE: 5/5 Right LE: 5/5 - Psychiatric Exam Psychiatric exam: Normal Affect, Normal Mood - Skin Skin Exam: Dry, Intact, Normal Color, Warm Results - Vital Signs Recent Vital Signs: Last Vital Signs Temp 98.6 F 11/23/16 12:00 Pulse 68 11/23/16 14:00 Resp 18 11/23/16 12:00 BP 132/72 11/23/16 12:19 Pulse Ox 99 11/23/16 06:00 - Labs Result Diagrams: 11/21/16 13:15 11/21/16 13:15 Labs: Laboratory Results - last 24 hr 11/22/16 11/22/16 11/22/16 07:22 11:29 16:14 POC Glucose (mg/dL) 82 130 H 136 H 11/22/16 21:50 POC Glucose (mg/dL) 108 Assessment & Plan - Assessment and Plan (Free Text) Assessment: 71F with PMH of A Fib presenting with multifocal left cerebral infarcts and >90 % stenosis at origin of right ICA Plan: * CVA likely secondary to A Fib and non compliance with warfarin along with tobacco use * Consider CEA pending neurology recs * Counseled on smoking cessation * Discussed with Dr. Neno Bettencourt, PGY-1
[2016-11-24] MEDS: Sodium Chloride 0.9% 1,000 ML IV SCH ×2 (05:27→07:58)
--- NOTE | 2016-11-24 09:12 | PN ---
DATE: 11/23/2016 DAILY PROGRESS NOTE SUBJECTIVE: The patient is a 71-year-old female who was admitted two days ago with a stroke. MRI done earlier today showed a left middle cerebral artery and posterior cerebral artery involvement. Carotid Doppler is done earlier, also showed 99% stenosis. When seen the patient is still mildly sedated. She received Ativan prior to the MRI. PHYSICAL EXAMINATION: VITAL SIGNS: She is afebrile. Blood pressure is 128/48 and heart rate is 56 beats per minute. LUNGS: Her lungs are clear anteriorly. HEART: Regular. IMPRESSION AND PLAN: So, we are continuing with physical therapy, speech therapy. The patient is moving all extremities; however, is quite frustrated from expressive aphasia. She has been started on Eliquis and we will continue to follow the patient closely. Bruno Allen MD
[2016-11-24] MEDS: Bacitracin/Neomycin/Polymyxin Oint(30GM) TOP SCH ×2 (09:48→18:07)
--- NOTE | 2016-11-24 10:00 | CP.PCM.PN ---
<Mer Winslow - Last Filed: 11/24/16 12:44> Subjective - Date & Time of Evaluation Date of Evaluation: 11/24/16 Time of Evaluation: 09:57 - Subjective Subjective: Neurology Progress Note for Danay Rubalcava PGY2 Patient seen and examined at bedside. As per nursing, there were no acute overnight events. Patient continues to have motor speech dysfunction. She states she has pain in the LLQ of her abdomen, but is tolerating diet. She denies n/v/d or constipation, dark or blood in stool. Patient is depressed this am and states she does not want surgery and would "rather just ". Objective - Vital Signs/Intake and Output Vital Signs (last 24 hours): Temp Pulse Resp BP Pulse Ox 97.8 F 97 H 18 108/52 L 93 L 11/24/16 06:00 11/24/16 07:58 11/24/16 06:00 11/24/16 09:51 11/24/16 06:00 Intake and Output: 11/24/16 11/24/16 06:59 18:59 Intake Total 1400 Balance 1400 - Medications Medications: Current Medications Acetaminophen (Tylenol 325mg Tab) 650 mg PO Q4H PRN PRN Reason: Pain, Mild (1-3) Last Admin: 11/23/16 14:35 Dose: 650 mg Apixaban (Eliquis) 5 mg PO BID [facility] PRN Reason: Protocol Last Admin: 11/24/16 09:51 Dose: 5 mg Aspirin (Ecotrin) 81 mg PO DAILY [facility] Last Admin: 11/24/16 09:51 Dose: 81 mg Atorvastatin Calcium (Lipitor) 20 mg PO DIN [facility] Last Admin: 11/23/16 18:14 Dose: 20 mg Furosemide (Lasix) 20 mg PO DAILY [facility] Last Admin: 11/24/16 09:51 Dose: 20 mg Home Med (Home Med) 1 unit PO HS [facility] Last Admin: 11/23/16 21:28 Dose: Not Given Sodium Chloride (Sodium Chloride 0.9%) 1,000 mls @ 100 mls/hr IV .Q10H [facility] Last Admin: 11/24/16 07:58 Dose: 100 mls/hr Metoprolol Tartrate (Lopressor) 50 mg PO BRKDIN [facility] Last Admin: 11/24/16 07:58 Dose: 50 mg Neomycin/Polymyxin/Bacitracin (Neosporin Triple Antibiotic Oint) 0 gm TOP BID [facility] Last Admin: 11/24/16 09:48 Dose: Not Given Nicotine (Nicoderm Cq) 1 patch TD DAILY [facility] Last Admin: 11/24/16 09:51 Dose: 1 patch - Labs Labs: PT 11.1 Seconds (9.9-11.8) 11/21/16 13:15 INR 1.03 (0.93-1.08) 11/21/16 13:15 APTT 27.2 Seconds (23.7-30.8) 11/21/16 13:15 - Constitutional Appears: No Acute Distress - Head Exam Head Exam: ATRAUMATIC, NORMAL INSPECTION, NORMOCEPHALIC - Eye Exam Eye Exam: Normal appearance, PERRL Pupil Exam: NORMAL ACCOMODATION, PERRL - ENT Exam ENT Exam: Mucous Membranes Moist - Respiratory Exam Respiratory Exam: Clear to Ausculation Bilateral, NORMAL BREATHING PATTERN. absent: Rales, Rhonchi, Wheezes - Cardiovascular Exam Cardiovascular Exam: REGULAR RHYTHM, +S1, +S2. absent: Gallop, Rubs, Murmur - GI/Abdominal Exam GI & Abdominal Exam: Soft, Tenderness (LLQ tenderness), Normal Bowel Sounds. absent: Rigid, Mass, Rebound - Extremities Exam Extremities Exam: Normal Inspection. absent: Calf Tenderness, Pedal Edema - Neurological Exam Neurological Exam: Alert, Awake, CN II-XII Intact, Oriented x3 Neuro motor strength exam: Left Upper Extremity: 4, Right Upper Extremity: 5, Left Lower Extremity: 4, Right Lower Extremity: 5 Additional comments: Motor speech aphasia - Psychiatric Exam Psychiatric exam: Depressed, Normal Affect - Skin Skin Exam: Dry, Intact, Normal Color, Warm Assessment and Plan - Assessment and Plan (Free Text) Assessment: This is a 71Y F with PMH HTN, A.fib, heavy smoker and medication non-compliance found to have multifocal L MCA acute cortical infractions in the L insular cortex, posterior parietal lobe, temporal lobe and parieto-occipital watershed territory. Patient is supposed to be on Coumadin, but INR is subtherapeutic and is still a heavy smoker. Hgb A1c noted to be 6.0. CVA secondary to uncontrolled risk factors such as heavy tobacco use and Coumadin non-compliance. Leukocytosis can be secondary to inflammation from infarction since onset of symptoms was a couple days ago. MRA head was negative. MRA neck showed >90% stenosis on R ICA stenosis. CVA most likely cardioembolic since it is on the L side of the brain whereas the stenosis is on the R carotid. Patient is having symptomatic R ICA stenosis with underlying weakness on the L upper and lower extremity. According to several trials (CAVATAS, SPACE, FISH-3S, ICSS) patients >70yrs old showed increased rate of stroke or at 120 days with carotid stenting (12%) compared with CEA ( 5.9%). Plan: - ordered stat MRI to r/o CVA from R carotid stenosis which did not show acute CVA - Continue ASA and Lipitor - Pt placed on Eliquis - Cardiology consulted - Recommend CEA instead of stent for carotid stenosis - Continue speech therapy, physical therapy and occupational therapy - Counseled patient on smoking cessation as well as medication compliance - Maintain adequate hydration - Avoid sedating medications Recommend rehab placement upon discharge. Case seen, discussed and reviewed with attending, Dr. Wheatley. Danya Winslow PGY2 <Arnav Wheatley - Last Filed: 11/24/16 13:51> Objective - Vital Signs/Intake and Output Vital Signs (last 24 hours): Temp Pulse Resp BP Pulse Ox 97.8 F 62 18 108/52 L 93 L 11/24/16 06:00 11/24/16 10:00 11/24/16 06:00 11/24/16 09:51 11/24/16 06:00 Intake and Output: 11/24/16 11/24/16 06:59 18:59 Intake Total 1400 Balance 1400 - Medications Medications: Current Medications Acetaminophen (Tylenol 325mg Tab) 650 mg PO Q4H PRN PRN Reason: Pain, Mild (1-3) Last Admin: 11/23/16 14:35 Dose: 650 mg Apixaban (Eliquis) 5 mg PO BID [facility] PRN Reason: Protocol Last Admin: 11/24/16 09:51 Dose: 5 mg Aspirin (Ecotrin) 81 mg PO DAILY [facility] Last Admin: 11/24/16 09:51 Dose: 81 mg Atorvastatin Calcium (Lipitor) 20 mg PO DIN [facility] Last Admin: 11/23/16 18:14 Dose: 20 mg Furosemide (Lasix) 20 mg PO DAILY [facility] Last Admin: 11/24/16 09:51 Dose: 20 mg Home Med (Home Med) 1 unit PO HS [facility] Last Admin: 11/23/16 21:28 Dose: Not Given Sodium Chloride (Sodium Chloride 0.9%) 1,000 mls @ 100 mls/hr IV .Q10H [facility] Last Admin: 11/24/16 07:58 Dose: 100 mls/hr Metoprolol Tartrate (Lopressor) 50 mg PO BRKDIN [facility] Last Admin: 11/24/16 07:58 Dose: 50 mg Neomycin/Polymyxin/Bacitracin (Neosporin Triple Antibiotic Oint) 0 gm TOP BID [facility] Last Admin: 11/24/16 09:48 Dose: Not Given Nicotine (Nicoderm Cq) 1 patch TD DAILY [facility] Last Admin: 11/24/16 09:51 Dose: 1 patch - Labs Labs: PT 11.1 Seconds (9.9-11.8) 11/21/16 13:15 INR 1.03 (0.93-1.08) 11/21/16 13:15 APTT 27.2 Seconds (23.7-30.8) 11/21/16 13:15 Attending/Attestation - Attestation I have personally seen and examined this patient.: Yes I have fully participated in the care of the patient.: Yes I have reviewed all pertinent clinical information, including history, physical exam and plan: Yes
--- NOTE | 2016-11-24 10:32 | CP.PCM.PN ---
Subjective - Date & Time of Evaluation Date of Evaluation: 11/24/16 Time of Evaluation: 10:28 - Subjective Subjective: Progress note for Dr. Lazcano Patient seen and examined at bedside. Patient resting comfortably in bed and there were no acute events overnight per nursing. Patient continues to have motor aphasia and LLQ pain. Patient is tolerating her diet. She is sad this morning tating that she would rather cry than smile when trying to test her cranial nerves. Patient denies nausea, vomiting, diarrhea, constipation. Objective - Vital Signs/Intake and Output Vital Signs (last 24 hours): Temp Pulse Resp BP Pulse Ox 97.8 F 97 H 18 108/52 L 93 L 11/24/16 06:00 11/24/16 07:58 11/24/16 06:00 11/24/16 09:51 11/24/16 06:00 Intake and Output: 11/24/16 11/24/16 06:59 18:59 Intake Total 1400 Balance 1400 - Medications Medications: Current Medications Acetaminophen (Tylenol 325mg Tab) 650 mg PO Q4H PRN PRN Reason: Pain, Mild (1-3) Last Admin: 11/23/16 14:35 Dose: 650 mg Apixaban (Eliquis) 5 mg PO BID [facility] PRN Reason: Protocol Last Admin: 11/24/16 09:51 Dose: 5 mg Aspirin (Ecotrin) 81 mg PO DAILY [facility] Last Admin: 11/24/16 09:51 Dose: 81 mg Atorvastatin Calcium (Lipitor) 20 mg PO DIN [facility] Last Admin: 11/23/16 18:14 Dose: 20 mg Furosemide (Lasix) 20 mg PO DAILY [facility] Last Admin: 11/24/16 09:51 Dose: 20 mg Home Med (Home Med) 1 unit PO HS [facility] Last Admin: 11/23/16 21:28 Dose: Not Given Sodium Chloride (Sodium Chloride 0.9%) 1,000 mls @ 100 mls/hr IV .Q10H [facility] Last Admin: 11/24/16 07:58 Dose: 100 mls/hr Metoprolol Tartrate (Lopressor) 50 mg PO BRKDIN [facility] Last Admin: 11/24/16 07:58 Dose: 50 mg Neomycin/Polymyxin/Bacitracin (Neosporin Triple Antibiotic Oint) 0 gm TOP BID [facility] Last Admin: 11/24/16 09:48 Dose: Not Given Nicotine (Nicoderm Cq) 1 patch TD DAILY [facility] Last Admin: 11/24/16 09:51 Dose: 1 patch - Labs Labs: PT 11.1 Seconds (9.9-11.8) 11/21/16 13:15 INR 1.03 (0.93-1.08) 11/21/16 13:15 APTT 27.2 Seconds (23.7-30.8) 11/21/16 13:15 - Constitutional Appears: Non-toxic, No Acute Distress - Head Exam Head Exam: NORMAL INSPECTION - Eye Exam Eye Exam: EOMI - ENT Exam ENT Exam: Mucous Membranes Moist - Respiratory Exam Respiratory Exam: NORMAL BREATHING PATTERN. absent: Accessory Muscle Use, Respiratory Distress - Cardiovascular Exam Cardiovascular Exam: Irregular Rhythm. absent: Bradycardia, Tachycardia Additional comments: Right carotid bruit - GI/Abdominal Exam GI & Abdominal Exam: Soft, Tenderness (LLQ TTP). absent: Distended - Extremities Exam Extremities Exam: Normal Inspection. absent: Calf Tenderness, Pedal Edema - Neurological Exam Neurological Exam: Alert, Awake Neuro motor strength exam: Left Upper Extremity: 3, Right Upper Extremity: 5, Left Lower Extremity: 2/1, Right Lower Extremity: 5 Additional comments: Accessory nerve in tact - Other CN unable to test because patient refused - Psychiatric Exam Psychiatric exam: Depressed, Normal Affect - Skin Skin Exam: Dry, Intact, Normal Color, Warm Assessment and Plan - Assessment and Plan (Free Text) Assessment: 71F with PMH of A Fib presenting with multifocal left cerebral infarcts and symptomatic, >90% stenosis at origin of right ICA Plan: * CVA likely secondary to A Fib and non compliance with warfarin along with tobacco use * Consider CEA - R ICA stenosis symptomatic * Will talk to primary to get a better understanding of patient's baseline * Counseled on smoking cessation * Will discuss with Dr. Neno Bettencourt, PGY-1
--- NOTE | 2016-11-24 11:35 | CP.PCM.CON ---
History of Present Illness - History of Present Illness History of Present Illness: Consult note for Dr. Lehman Reason for consult: Right ICA stenosis HPI: Patient is a 71F who presented to the ED via ambulance for slurred speech and confusion two days ago. Patient had motor aphasia upon arrival and was found to have multifocal left cerebral infarctions on MRI. History was limited due to aphasia and confusion. Patient admits to some dizziness but she was given Ativan prior to arrival per nursing. Patient was pointing to the LLQ and admitted to pain in this area when coughing. She says this pain is a 2/10 but this may be an unreliable measurement. Patient appears sad saying she would rather cry than smile while trying to assess cranial nerve function. Patient denies headache, chest pain, SOB, fever, chills, nausea, vomiting, diarrhea, constipation, pain or swelling of extremities, numbness, and tingling. PMH: Afib, CAD, + Thallium stress test (04/2011 - refused cath), PVD (Left superficial femoral artery occlusion), Right pleural effusion (10/2015), CHF Meds: See MAR (ASA) PSH: skin biopsy of diffuse pruritic rash (Dr. Sheehan) Allergies: NKDA SocHx: current smoker, social drinker, lives alone Review of Systems - Review of Systems All systems: reviewed and no additional remarkable complaints except (as per HPI ) Past Patient History - Infectious Disease Hx of Infectious Diseases: None - Past Social History Smoking Status: Heavy Smoker > 10 Cigarettes Daily - CARDIAC Hx Cardiac Disorders: Yes (AF, mod mitral regurgitation,) Hx Hypertension: Yes - PULMONARY Hx Chronic Obstructive Pulmonary Disease (COPD): Yes (current heavy smoker) - NEUROLOGICAL HX Cerebrovascular Accident: Yes - HEENT Hx HEENT Problems: Yes Hx Blind: No Hx Cataracts: No Hx Deafness: No Hx Difficulty Chewing: No Hx Epistaxis: No Hx Glaucoma: No Hx Macular Degeneration: Yes - RENAL Hx Chronic Kidney Disease: No Hx Renal Failure: No - ENDOCRINE/METABOLIC Hx Endocrine Disorders: No Hx Diabetes Mellitus Type 1: No Hx Diabetes Mellitus Type 2: No - HEMATOLOGICAL/ONCOLOGICAL Hx Blood Disorders: No Hx AIDS: No Hx Anemia: No Hx Cancer: No Hx Chemotherapy: No Hx Cirrhosis: No Hx Hemophilia: No Hx Hepatitis A: No Hx Hepatitis B: No Hx Hepatitis C: No Hx Metastesis: No Hx Shingles: No Hx Sickle Cell Disease: No Hx Unexplained Bleeding: No - INTEGUMENTARY Hx Dermatological Problems: Yes Hx Basil Cell: No Hx Eczema: No Hx Melanoma: No Hx Psoriasis: No Hx Squamous Cell: No Other/Comment: currently has multiple red spots on BLE and upper back - MUSCULOSKELETAL/RHEUMATOLOGICAL Hx Arthritis: (LBP) - GASTROINTESTINAL Hx Gastrointestinal Disorders: No Hx Colostomy: No Hx Crohn's Disease: No Hx Diverticulitis: No Hx Gall Bladder Disease: No Hx Gastroesophageal Reflux: No Hx Ileostomy: No Hx Liver Failure: No Hx Pancreatitis: No HX Swallowing Problems: No - GENITOURINARY/GYNECOLOGICAL Hx Genitourinary Disorders: Yes Hx Hematuria: No Hx Incontinence: No Hx Sexually Transmitted Disorders: No Hx Urinary Tract Infection: Yes - PSYCHIATRIC Hx Psychophysiologic Disorder: No Hx Anxiety: No Hx Bipolar Disorder: No Hx Depression: No Hx Emotional Abuse: No Hx Hallucinations: No Hx Panic Symptoms: No Hx Post Traumatic Stress Disorder: No Hx Psychosis: No Hx Physical Abuse: No Hx Schizophrenia: No Hx Sexual Abuse: No Hx Substance Use: No - SURGICAL HISTORY Hx Amputation: No Hx Cardiac Catheterization: No Hx Cholecystectomy: No Hx Coronary Stent: No Hx Gastric Bypass Surgery: No Hx Hysterectomy: No Hx Joint Replacement: No Hx Kidney Transplant: No Hx Liver Transplant: No Hx Mastectomy: No Hx Musculoskeletal Surgery: No Hx Open Heart Surgery: No Hx Orthopedic Surgery: No Hx Splenectomy: No Hx Valve Replacement: No - ANESTHESIA Hx Anesthesia: Yes Hx Anesthesia Reactions: No Hx Malignant Hyperthermia: No Meds Allergies/Adverse Reactions: Allergies Allergy/AdvReac Type Severity Reaction Status Date / Time No Known Allergies Allergy Verified 11/21/16 17:00 - Medications Medications: Current Medications Acetaminophen (Tylenol 325mg Tab) 650 mg PO Q4H PRN PRN Reason: Pain, Mild (1-3) Last Admin: 11/23/16 14:35 Dose: 650 mg Apixaban (Eliquis) 5 mg PO BID [facility] PRN Reason: Protocol Last Admin: 11/24/16 09:51 Dose: 5 mg Aspirin (Ecotrin) 81 mg PO DAILY [facility] Last Admin: 11/24/16 09:51 Dose: 81 mg Atorvastatin Calcium (Lipitor) 20 mg PO DIN [facility] Last Admin: 11/23/16 18:14 Dose: 20 mg Furosemide (Lasix) 20 mg PO DAILY [facility] Last Admin: 11/24/16 09:51 Dose: 20 mg Home Med (Home Med) 1 unit PO HS [facility] Last Admin: 11/23/16 21:28 Dose: Not Given Sodium Chloride (Sodium Chloride 0.9%) 1,000 mls @ 100 mls/hr IV .Q10H [facility] Last Admin: 11/24/16 07:58 Dose: 100 mls/hr Metoprolol Tartrate (Lopressor) 50 mg PO BRKDIN [facility] Last Admin: 11/24/16 07:58 Dose: 50 mg Neomycin/Polymyxin/Bacitracin (Neosporin Triple Antibiotic Oint) 0 gm TOP BID [facility] Last Admin: 11/24/16 09:48 Dose: Not Given Nicotine (Nicoderm Cq) 1 patch TD DAILY [facility] Last Admin: 11/24/16 09:51 Dose: 1 patch Physical Exam - Additional Findings Additional findings: - Constitutional Appears: Non-toxic, No Acute Distress - Head Exam Head Exam: NORMAL INSPECTION - Eye Exam Eye Exam: EOMI - ENT Exam ENT Exam: Mucous Membranes Moist - Respiratory Exam Respiratory Exam: NORMAL BREATHING PATTERN. absent: Accessory Muscle Use, Respiratory Distress - Cardiovascular Exam Cardiovascular Exam: Irregular Rhythm. absent: Bradycardia, Tachycardia Additional comments: Right carotid bruit - GI/Abdominal Exam GI & Abdominal Exam: Soft, Tenderness (LLQ TTP). absent: Distended - Extremities Exam Extremities Exam: Normal Inspection. absent: Calf Tenderness, Pedal Edema - Neurological Exam Neurological Exam: Alert, Awake Neuro motor strength exam: Left Upper Extremity: 3, Right Upper Extremity: 5, Left Lower Extremity: 2/1, Right Lower Extremity: 5 Additional comments: Accessory nerve in tact - Other CN unable to test because patient refused - Psychiatric Exam Psychiatric exam: Depressed, Normal Affect - Skin Skin Exam: Dry, Intact, Normal Color, Warm Results - Vital Signs Recent Vital Signs: Last Vital Signs Temp 97.8 F 11/24/16 06:00 Pulse 62 11/24/16 10:00 Resp 18 11/24/16 06:00 BP 108/52 L 11/24/16 09:51 Pulse Ox 93 L 11/24/16 06:00 - Labs Result Diagrams: 11/21/16 13:15 11/21/16 13:15 Labs: Laboratory Results - last 24 hr 11/23/16 11/23/16 11/23/16 07:25 11:25 16:08 POC Glucose (mg/dL) 81 151 H 116 H 11/23/16 21:35 POC Glucose (mg/dL) 222 H Assessment & Plan - Assessment and Plan (Free Text) Assessment: 71F with PMH of A Fib (non compliant with Warfarin) presenting with multifocal left cerebral infarcts and symptomatic, >90% stenosis at origin of right ICA Plan: * CVA likely secondary to A Fib and non compliance with warfarin along with tobacco use * Consider CEA - R ICA stenosis symptomatic * Will talk to primary to get a better understanding of patient's baseline * Counseled on smoking cessation * Will discuss with Dr. Fallon Bettencourt, PGY-1
[2016-11-24] MEDS ORDERED: Gadodiamide 287 MG/ML VIAL (15ML) IV ONE (12:03)
--- NOTE | 2016-11-24 12:41 | MRI ---
PROCEDURE: MRI BRAIN WITH AND WITHOUT CONTRAST HISTORY: New left sided weakness COMPARISON: None. TECHNIQUE: Multiplanar, multisequence MR images of the brain were obtained with and without intravenous contrast enhancement. FINDINGS: HEMORRHAGE: None DWI: There are subacute multifocal infarctions in the left MCA and MCP [employer] watershed territory involving the posterior parietal, insular, lateral parietal, temporal and parieto-occipital cortex. There is no new area of restricted diffusion to suggest new acute infarction. BRAIN PARENCHYMA: There is T2/FLAIR hyperintensity corresponding to the acute infarctions in the left parietal and parieto-occipital lobes. Again seen are mild chronic microangiopathic changes. There is no mass, mass effect or abnormal extra-axial fluid collection. The midline sagittal structures are normal. ENHANCEMENT: No abnormal intracranial enhancement. VENTRICLES: There is mild age-related global parenchymal volume loss and proportionate enlargement of the ventricles and cortical sulci. CRANIUM: There is normal bone marrow signal pattern. ORBITS: Grossly unremarkable. PARANASAL SINUSES/MASTOIDS: There is mild mucosal thickening in the ethmoid air cells and small mastoid effusions, larger on the left. VASCULAR SYSTEM: There are normal signal voids in the larger intracranial arteries. OTHER FINDINGS: None . IMPRESSION: 1. No evidence of acute infarction. 2. Redemonstration of subacute left MCA and MCA -[employer] watershed territory infarctions. 3. Mild chronic microangiopathic changes and mild age-related global parenchymal volume loss.
[2016-11-24 17:19] VITALS: O2SAT 97
[2016-11-24 17:28] VITALS: RESP 19; TEMP 99.4
[2016-11-24] MEDS ORDERED: Potassium Chloride 20 mEq ER Tab PO ONE (17:31)
[2016-11-24 18:15] VITALS: BP 149/87; PULSE 69
--- NOTE | 2016-11-24 20:38 | DS ---
HISTORY OF PRESENT ILLNESS: This is a 71-year-old woman with a distant history of intermittent atrial fibrillation, she has been in sinus rhythm on all her EKGs in the last several years, not taking Coumadin, who presented to the emergency room with a sudden onset of expressive aphasia and right-sided weakness. CT scan showed multiple infarcts on the left parietal and posterior occipital area which is most suspicious of embolic phenomenon. HOSPITAL COURSE: She was admitted and treated with aspirin, Plavix, systemic anticoagulants and Eliquis. Neurology consultation was requested. The next day, dense expressive aphasia remained. Weakness in the right side was improving. Further workup including an MRA showed greater than 90% occlusion of the right internal carotid artery. Vascular consultation was initially requested by the nurse practitioner with Dr. Lazcano. The patient requested a vascular evaluation by Dr. Lehman. It was later found that Dr. Lehman does not perform endarterectomies and Dr. Lazcano was not available. So today, I spoke with consulting neurologist, Dr. Wheatley, and arrangements were made for the patient to be discharged and transferred to [facility] onto the service of Dr. Lavell River of [facility]. She was prepped with this information when I saw her this noontime, . I asked that copies of the MRI and MRA be given to the patient in a CD format for the folks at [facility] to avoid having to repeat some of these tests and the patient was discharged via [facility] with a nurse and a plastics plater. FINAL DISCHARGE DIAGNOSES: 1. Stroke, embolic, to the left parietal occipital area. 2. Critical right internal carotid artery stenosis. 3. Heavy tobacco use. 4. History of intermittent atrial fibrillation. 5. Hypertension. 6. Chronic obstructive pulmonary disease. 7. History of splenic infarct several years ago. Dhaval Allen MD
--- NOTE | 2016-11-24 23:54 | CON ---
SERVICE: Cardiology. REASON FOR CONSULTATION: Possible Afib, coronary artery stenosis, CVA. 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 The patient is possibly scheduled to go to [facility] this night for possible carotid artery endarterectomy. The patient denies any chest pain, shortness of breath, any palpitations. 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 The patient also at that time had ANETA that shows no PFO, no vegetation, history of tobacco abuse, longstanding history of alcohol abuse. Past history significant for coronary artery disease, abnormal stress test 2011, later on diffuse cardiac catheterization. Previous cardiac workup as follows; the patient had stress test and that shows small area of infarct, a small area of ischemia and the patient scheduled for cardiac catheterization 05/2014, but later on patient declined. The patient's last echo on 10/17/2015 that shows ejection fraction of 65%, mild aortic stenosis, mild mitral regurgitation, mild tricuspid regurgitation, with a LV systolic pressure of 40. ALLERGIES: NO KNOWN DRUG ALLERGIES. SOCIAL HISTORY: As mentioned, he continues to smoke. CURRENT MEDICATIONS: Before the patient came in, supposed to take Coumadin, very noncompliant; supposed to take metoprolol, but not taking any medicine. REVIEW OF SYSTEMS: As per HPI. PHYSICAL EXAMINATION VITAL SIGNS: Temperature afebrile, heart rate 62, blood pressure 108/52. HEENT: PERRLA intact. NECK: Supple. No carotid bruits or thyromegaly. CHEST: Clear to auscultation. HEART: S1 and S2 regular. ABDOMEN: Soft. EXTREMITIES: Clubbing and cyanosis negative. LABORATORY DATA: Blood workup as follows: WBC 14, hemoglobin 15.4, hematocrit 44.6, platelet count 131. Chemistry shows sodium 135, potassium 3.9, chloride 96, carbon dioxide 30, anion gap of 13, BUN 25, creatinine 0.9. BNP 1230. Troponin is 0.01, 0.02, 0.12. EKG shows normal sinus, no acute ST-T changes noted. 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 The patient is now being transferred to [facility] for carotid artery endarterectomy. The patient to be high risk for a procedure with the underlying comorbidity, noncompliance of the issue, and history of abnormal stress test in the past, the patient declined cardiac catheterization. Recommend continue atorvastatin, continue aspirin, continue Eliquis and continue beta nena. We will follow with you. Once the patient has undergone carotid artery endarterectomy, consider cardiac workup including stress test and cardiac catheterization. We will discontinue IV fluid. Thank you doctor for providing me the opportunity in taking care of the patient. Louis Montaño MD
== END 2016-11-24 18:41 | disposition short-term general hospital (02) | DRG 66 ==
LOC: ED 12:50 → ERH 14:58 → 2RNO 16:15
PROVIDERS: ADMIT Internal Medicine; ATTEND Internal Medicine
DX: I63.412 Cerebral infarction due to embolism of left middle cerebral artery (principal); R47.01 Aphasia; I11.0 Hypertensive heart disease with heart failure; I50.9 Heart failure, unspecified; I65.21 Occlusion and stenosis of right carotid artery; R29.706 NIHSS score 6; I48.91 Unspecified atrial fibrillation; J44.9 Chronic obstructive pulmonary disease, unspecified; D72.829 Elevated white blood cell count, unspecified; F17.210 Nicotine dependence, cigarettes, uncomplicated; I25.10 Atherosclerotic heart disease of native coronary artery without angina pectoris; I73.9 Peripheral vascular disease, unspecified; Z91.19 Patient's noncompliance with other medical treatment and regimen; Z79.01 Long term (current) use of anticoagulants; Z91.14 Patient's other noncompliance with medication regimen

== ENCOUNTER 2017-03-14 12:17 | Emergency (ER) | payer MEDICARE, BC ==
[2017-03-14 12:29] VITALS: RESP 18; TEMP 98; O2SAT 97
[2017-03-14 13:37] LABS: HEMOGLOBIN 10.6 g/dL (12.0-16.0); MEAN CELL VOLUME 74.9 fl (80.0-105.0); MEAN CORPUSCULAR HEMOGLOBIN 23.3 pg (25.0-35.0); MEAN CORPUSCULAR HGB CONC 31.2 g/dl (31.0-37.0); RBC 4.54 10^6/uL (3.5-6.1); RED CELL DISTRIBUTION WIDTH 18.5 % (11.5-14.5); WHITE BLOOD COUNT 5.5 10^3/ul (4.5-11.0)
[2017-03-14 13:43] LABS: INR 3.4 (0.93-1.08); PROTHROMBIN TIME 40.1 SECONDS (9.4-12.5)
--- NOTE | 2017-03-14 14:06 | ED PDOC ---
Arrival/HPI - General Historian: Patient - History of Present Illness Time/Duration: Other (3 days ago) Symptom Course: Improving Severity Level: Mild Activities at Onset: Rest Context: Sitting, Standing, Exertion, Home <Mirta Martinez - Last Filed: 03/14/17 18:28> <Lisandro Phelan - Last Filed: 03/14/17 18:44> - General Chief Complaint: Abnormal Skin Integrity Time Seen by Provider: 03/14/17 13:08 - History of Present Illness Narrative History of Present Illness (Text): 03/14/17 13:56 A 71 year old female, whose past medical history includes CVA in 12/06, presents to the emergency department complaining of a wound to her left upper lip from 3 days ago. Patient reports she scratched her lip with her nail while washing her face on Monday. She notes her lip started to bleed this morning causing her to come in for further evaluation. Patient denies any prior fall, weakness, fever, chills, nausea, vomiting, abdominal pain, chest pain, shortness of breath, cough or any other complaints. Patient on Coumadin and Plavix. 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 (Mirta Martinez) Past Medical History - Provider Review Nursing Documentation Reviewed: Yes - Infectious Disease Hx of Infectious Diseases: None - Cardiac Hx Cardiac Disorders: Yes (AF, mod mitral regurgitation,) Hx Hypertension: Yes - Pulmonary Hx Chronic Obstructive Pulmonary Disease (COPD): Yes (current heavy smoker) - Neurological HX Cerebrovascular Accident: Yes - HEENT Hx HEENT Disorder: Yes Hx Blind: No Hx Cataracts: No Hx Deafness: No Hx Difficulty Chewing: No Hx Epistaxis: No Hx Glaucoma: No Hx Macular Degeneration: Yes - Renal Hx Renal Disorder: No Hx Renal Failure: No - Endocrine/Metabolic Hx Endocrine Disorders: No Hx Diabetes Mellitus Type 1: No Hx Diabetes Mellitus Type 2: No - Hematological/Oncological Hx Blood Disorders: No - Integumentary Hx Dermatological Disorder: Yes Other/Comment: currently has multiple red spots on BLE and upper back - Musculoskeletal/Rheumatological Hx Arthritis: (LBP) - Gastrointestinal Hx Gastrointestinal Disorders: No - Genitourinary/Gynecological Hx Genitourinary Disorders: Yes Hx Urinary Tract Infection: Yes - Psychiatric Hx Psychophysiologic Disorder: No Hx Substance Use: No - Surgical History Hx Amputation: No Hx Cardiac Catheterization: No Hx Cholecystectomy: No Hx Coronary Stent: No Hx Gastric Bypass Surgery: No Hx Hysterectomy: No Hx Joint Replacement: No Hx Kidney Transplant: No Hx Liver Transplant: No Hx Mastectomy: No Hx Musculoskeletal Surgery: No Hx Open Heart Surgery: No Hx Orthopedic Surgery: No Hx Splenectomy: No Hx Valve Replacement: No - Anesthesia Hx Anesthesia: Yes Hx Anesthesia Reactions: No Hx Malignant Hyperthermia: No - Suicidal Assessment Feels Threatened In Home Enviroment: No <Mirta Martinez - Last Filed: 03/14/17 18:28> Family/Social History - Physician Review Nursing Documentation Reviewed: Yes Family/Social History: No Known Family HX Smoking Status: Heavy Smoker > 10 Cigarettes Daily Hx Alcohol Use: No Hx Substance Use: No <Mirta Martinez - Last Filed: 03/14/17 18:28> Allergies/Home Meds <Mirta Martinez - Last Filed: 03/14/17 18:28> <Lisandro Phelan - Last Filed: 03/14/17 18:44> Allergies/Adverse Reactions: Allergies No Known Allergies Allergy (Verified 03/14/17 12:37) Home Medications: Home Meds Medication Instructions Recorded Confirmed Atorvastatin [Lipitor] 20 mg PO DAILY 03/14/17 03/14/17 Clopidogrel [Plavix] 75 mg PO DAILY 03/14/17 03/14/17 Furosemide [Lasix] 20 mg PO DAILY 03/14/17 03/14/17 Metoprolol Tartrate [Lopressor] 25 mg PO Q12 03/14/17 03/14/17 Tamsulosin HCl [Flomax] 0.4 mg PO HS 03/14/17 03/14/17 Warfarin [Coumadin] 5 mg PO DAILY 03/14/17 03/14/17 Review of Systems - Physician Review All systems were reviewed & negative as marked: Yes - Review of Systems Constitutional: absent: Fevers, Night Sweats Respiratory: absent: SOB, Cough Cardiovascular: absent: Chest Pain Gastrointestinal: absent: Abdominal Pain, Nausea, Vomiting Skin: Other (Active bleeding from wound to left upper lip) Neurological: absent: Focal Weakness <Mirta Martinez - Last Filed: 03/14/17 18:28> Physical Exam Vital Signs Reviewed: Yes Temperature: Afebrile Blood Pressure: Hypertensive Pulse: Regular Respiratory Rate: Normal Appearance: Positive for: Well-Appearing, Non-Toxic, Comfortable Pain Distress: None Mental Status: Positive for: Alert and Oriented X 3 - Systems Exam Head: Present: Atraumatic, Normocephalic Pupils: Present: PERRL Extroacular Muscles: Present: EOMI Conjunctiva: Present: Normal Mouth: Present: Moist Mucous Membranes Respiratory/Chest: Present: Clear to Auscultation, Good Air Exchange. No: Respiratory Distress, Accessory Muscle Use Cardiovascular: Present: Regular Rate and Rhythm, Normal S1, S2. No: Murmurs Abdomen: Present: Normal Bowel Sounds. No: Tenderness, Distention, Peritoneal Signs Upper Extremity: Present: Normal Inspection. No: Cyanosis, Edema Lower Extremity: Present: Normal Inspection. No: Edema Neurological: Present: GCS=15, CN II-XII Intact, Speech Normal Skin: Present: Warm, Dry, Normal Color, Other (Small puncture wound to left upper lip with active bleeding. No ecchymosis.). No: Rashes Psychiatric: Present: Alert, Oriented x 3, Normal Insight, Normal Concentration <Mirta Martinez - Last Filed: 03/14/17 18:28> Vital Signs Temp Pulse Resp BP Pulse Ox 03/14/17 15:21 109 H 18 112/78 97 03/14/17 12:29 98.0 F 113 H 18 134/75 97 Medical Decision Making - Lab Interpretations I have reviewed the lab results: Yes <Mirta Martinez - Last Filed: 03/14/17 18:28> <Lisandro Phelan - Last Filed: 03/14/17 18:44> ED Course and Treatment: 03/14/17 13:56 Impression: A 71 year old female with a wound to left upper lip. Plan: -- Labs cbc, cmp, INR -- Reassess and disposition Progress Notes: Pressure has been applied wound with no improvement. Plan is to cauterize to stop the bleeding. Discussed INR level and need to follow up with specialist to assess medications Left upper lip cauterized with silver nitrate; bleeding resolved quickly and pt was able to relax Discussed with patient and daughter at bedside, care and caution of the lip while washing and eating. Pt needs to follow up w primary in 1-2 days (Mirta Martinez) - Lab Interpretations Lab Results: 03/14/17 13:05 03/14/17 13:05 Lab Results 03/14/17 13:05: Sodium 141, Potassium 4.2, Chloride 106, Carbon Dioxide 26, Anion Gap 14, BUN 21, Creatinine 0.6 L, Est GFR ( Amer) > 60, Est GFR ( Non-Af Amer) > 60, Random Glucose 90, Calcium 10.5, Total Bilirubin 0.4, AST 28 , ALT 30, Alkaline Phosphatase 60, Total Protein 6.9, Albumin 3.9, Globulin 3.0 , Albumin/Globulin Ratio 1.3 03/14/17 13:05: PT 40.1 H, INR 3.40 H 03/14/17 13:05: WBC 5.5 D, RBC 4.54, Hgb 10.6 L D, Hct 34.0 L, MCV 74.9 L D, MCH 23.3 L, MCHC 31.2, RDW 18.5 H, Plt Count 214, MPV 11.0 - PA / PULLEY MAINTAINER / Resident Statement MD/DO has examined the patient and agrees with the treatment plan. <Lisandro Phelan - Last Filed: 03/14/17 18:44> Disposition/Present on Arrival - Present on Arrival Any Indicators Present on Arrival: Yes History of DVT/PE: No History of Uncontrolled Diabetes: No Urinary Catheter: No History of Decub. Ulcer: No History Surgical Site Infection Following: None - Disposition Have Diagnosis and Disposition been Completed?: Yes Disposition Time: 14:47 Patient Plan: Discharge <Mirta Martinez - Last Filed: 03/14/17 18:28> <Lisandro Phelan - Last Filed: 03/14/17 18:44> - Disposition Diagnosis: Bleeding, Lip laceration Disposition: HOME/ ROUTINE Patient Problems: Current Active Problems Problem Status Onset Bleeding Acute Lip laceration Acute Condition: GOOD Discharge Instructions (ExitCare): Laceration (ED), Acute Wound Care (ED) Additional Instructions: If you experience worsening of symptoms such as fever, shortness of breath, chest pain or bleeding, return to the ED for further evaluation. Please follow the handouts provided and have a speedy recovery. Follow up with your doctor in the next few days. Forms: [employer] (Hungarian)
[2017-03-14 14:16] LABS: ALB/GLOB RATIO 1.3 (1.1-1.8); ALBUMIN 3.9 g/dL (3.0-4.8); ALT/SGPT 30 U/L (7-56); AST/SGOT 28 U/L (14-36); BLOOD UREA NITROGEN 21 mg/dL (7-21); CALCIUM 10.5 mg/dL (8.4-10.5); GFR AFRICAN-AMERICAN > 60; GFR NON-AFRICAN AMERICAN > 60
[2017-03-14 15:25] VITALS: PULSE 109
[2017-03-14 15:59] VITALS: BP 112/78
== END 2017-03-14 15:50 | disposition home or self-care (01) ==
LOC: ED 12:17
DX: S01.511A Laceration without foreign body of lip, initial encounter (principal); X58.XXXA Exposure to other specified factors, initial encounter; I10 Essential (primary) hypertension; J44.9 Chronic obstructive pulmonary disease, unspecified; F17.210 Nicotine dependence, cigarettes, uncomplicated